=== PATIENT | female | born 1965 | race Caucasian/White ===

== ENCOUNTER 2016-08-10 16:57 | Emergency (ER) | payer OTHER ==
[2016-08-10 17:06] VITALS: BP 155/97
--- NOTE | 2016-08-10 17:23 | UC ---
Throat Pain/Nasal Demian HPI - HPI Summary HPI Summary: Patient has had increased sinus pain and pressure over the last few days, dry cough is keeping her up at night and she is now SOB on exertion. - History of Current Complaint Chief Complaint: UCGeneralIllness Stated Complaint: SINUS Time Seen by Provider: 08/10/16 17:06 Hx Obtained From: Patient Hx Last Menstrual Period: 11/24/12 ?: No Onset/Duration: Sudden Onset, Lasting Days Severity: Moderate Cough: Nonproductive Associated Signs & Symptoms: Positive: Dysphagia, Wheezing, Sinus Discomfort, Nasal Discharge - Allergies/Home Medications Allergies/Adverse Reactions: Allergies Allergy/AdvReac Type Severity Reaction Status Date / Time No Known Allergies Allergy Verified 08/10/16 17:01 Home Medications: Home Medications Ibuprofen TAB* [Motrin TAB* 800 MG] 800 mg PO Q8H PRN 08/10/16 [History Confirmed 08/10/16] Loratadine [Claritin 10 MG CAP] 10 mg PO DAILY 08/10/16 [History Confirmed 08/10] PMH/Surg Hx/FS Hx/Imm Hx Previously Healthy: Yes Respiratory History Of: Reports: Asthma Cancer History Of: Denies: Breast Cancer - Surgical History Surgical History: Yes Surgery Procedure, Year, and Place: , 2004, [facility]. [place], 2006, [facility]. hysterectomy 04/2016 - Family History Known Family History: Positive: Hypertension - Social History Alcohol Use: None Substance Use Type: None Smoking Status (MU): Never Smoked Tobacco Review of Systems Constitutional: Fatigue Skin: Negative Eyes: Negative ENT: Sore Throat, Ear Ache, Nasal Discharge Respiratory: Shortness Of Breath, Cough Cardiovascular: Negative Gastrointestinal: Negative Genitourinary: Negative Motor: Negative Neurovascular: Negative Musculoskeletal: Myalgia Neurological: Headache Psychological: Negative All Other Systems Reviewed And Are Negative: Yes Physical Exam Triage Information Reviewed: Yes Appearance: Well-Nourished, Ill-Appearing, Pain Distress Vital Signs: Initial Vital Signs Temp 97.3 F 08/10/16 17:02 Pulse 79 08/10/16 17:02 Resp 16 08/10/16 17:02 BP 155/97 08/10/16 17:02 Pulse Ox 100 08/10/16 17:02 Vital Signs Reviewed: Yes Eye Exam: Normal Eyes: Positive: Conjunctiva Inflamed ENT: Positive: Pharyngeal erythema, TM bulging Dental Exam: Normal Neck exam: Normal Neck: Positive: Supple, Nontender, No Lymphadenopathy Respiratory Exam: Normal Respiratory: Positive: Lungs clear, Normal breath sounds, Wheezing, Inspiration Cardiovascular Exam: Normal Cardiovascular: Positive: RRR, No Murmur, Pulses Normal Abdominal Exam: Normal Abdomen Description: Positive: Nontender, No Organomegaly, Soft Bowel Sounds: Positive: Present Musculoskeletal Exam: Normal Musculoskeletal: Positive: Strength Intact, ROM Intact, No Edema Neurological Exam: Normal Neurological: Positive: Alert, Muscle Tone Normal Psychological Exam: Normal Skin Exam: Normal Throat Pain/Nasal Course/Dx - Course Course Of Treatment: hx obtained, exam performed, meds reviewed, treated for sinusitis and wheezing - Differential Dx/Diagnosis Differential Diagnosis/HQI/PQRI: Influenza, Laryngitis, Otitis Media, Pharyngitis, Sinusitis Provider Diagnoses: sinusitis. wheezing Discharge - Discharge Plan Condition: Stable Disposition: HOME Patient Education Materials: Wheezing (ED), Sinusitis (ED) Additional Instructions: 1. take the medication as prescribed. hold off on the antibiotic for a day or two to see how the prednisone does for you. 2. increase your fluid intake and get plenty of rest. 3. ibuprofen and tylenol as neede for pain and fever.
== END 2016-08-10 17:31 | disposition home or self-care (01) ==
LOC: UCCORT 16:57
DX: J01.90 Acute sinusitis, unspecified (principal); B96.89 Other specified bacterial agents as the cause of diseases classified elsewhere; R06.2 Wheezing
CPT/HCPCS: 99212; G0463

== ENCOUNTER 2017-11-30 14:50 | Emergency (ER) | payer OTHER ==
[2017-11-30 15:45] VITALS: BP 158/102
--- NOTE | 2017-11-30 15:54 | UC ---
Skin Complaint HPI - HPI Summary HPI Summary: possibly had a tick on her inner right lower leg for about 3 hours yesterday-- patient removed the bug but was talking with friends who felt she should be evaluated has antibiotics - History of Current Complaint Chief Complaint: [facility] Time Seen by Provider: 11/30/17 15:51 Stated Complaint: TICK BITE Hx Obtained From: Patient Hx Last Menstrual Period: 11/24/12 ?: No Onset/Duration: Sudden Onset, Resolved Skin Exposure Onset/Duration: Days Ago - 1 Current Severity: None Pain Intensity: 0 Location: Discrete - right inner lower leg Character: Redness - less than quarter size erythema with small red scab Aggravating Factor(s): Nothing Alleviating Factor(s): Unknown Associated Signs & Symptoms: Positive: Negative Related History: Insect Bite/Sting - Allergy/Home Medications Allergies/Adverse Reactions: Allergies Allergy/AdvReac Type Severity Reaction Status Date / Time No Known Allergies Allergy Verified 11/30/17 15:37 Home Medications: Home Medications Albuterol HFA INHALER* [Ventolin HFA Inhaler*] 2 puff INH Q4H PRN 11/30/17 [ History Confirmed 11/30/17] Ibuprofen TAB* [Advil TAB*] 400 mg PO Q6H PRN 11/30/17 [History Confirmed ] Tamoxifen Citrate 20 mg PO DAILY 11/30/17 [History Confirmed 11/30/17] cloNIDine TAB* [Catapres 0.1 MG TAB*] 0.1 mg PO DAILY 11/30/17 [History Confirmed 11/30/17] Review of Systems Constitutional: Negative Skin: Other - small red area at site of insect bite Eyes: Negative ENT: Negative Respiratory: Negative Cardiovascular: Negative Gastrointestinal: Negative Genitourinary: Negative Motor: Negative Neurovascular: Negative Musculoskeletal: Negative Neurological: Negative Psychological: Negative Is Patient Immunocompromised?: No All Other Systems Reviewed And Are Negative: Yes PMH/Surg Hx/FS Hx/Imm Hx Previously Healthy: No - Fibromyalgia Cardiovascular History: Hypertension GI/ History: Gastroesophageal Reflux Neurological History: Migraine Psychological History: Anxiety Cancer History: Breast Cancer - Surgical History Surgical History: Yes Surgery Procedure, Year, and Place: , 2004, [facility]. [place], 2006, [facility]. hysterectomy 04/2016 - Family History Known Family History: Positive: Hypertension - Social History Occupation: Employed Full-time Lives: With Family Alcohol Use: Weekly Alcohol Amount: 2 Substance Use Type: None Smoking Status (MU): Former Smoker Type: Cigarettes Amount Used/How Often: up 1 pack 15 year Have You Smoked in the Last Year: No When Did the Patient Quit Smoking/Using Tobacco: 2004 Physical Exam Triage Information Reviewed: Yes Appearance: Well-Appearing, No Pain Distress, Obese Vital Signs: Initial Vital Signs Temp 98 F 11/30/17 15:41 Pulse 72 11/30/17 15:41 Resp 17 11/30/17 15:41 BP 158/102 11/30/17 15:41 Pulse Ox 100 11/30/17 15:41 Vital Signs Reviewed: Yes Eye Exam: Normal Eyes: Positive: Conjunctiva Clear ENT Exam: Normal ENT: Positive: Normal ENT inspection, Hearing grossly normal. Negative: Trismus , Muffled voice, Hoarse voice Dental Exam: Normal Neck exam: Normal Neck: Positive: Supple, Nontender Respiratory Exam: Normal Respiratory: Positive: Chest non-tender, No respiratory distress, No accessory muscle use Cardiovascular Exam: Normal Cardiovascular: Positive: RRR, Pulses Normal, Brisk Capillary Refill Musculoskeletal Exam: Normal Musculoskeletal: Positive: Strength Intact, ROM Intact, No Edema Neurological Exam: Normal Neurological: Positive: Alert, Muscle Tone Normal Psychological Exam: Normal Skin Exam: Other Skin: Positive: Other - less than one quarter size erythemic area with small red scab no streak, no raised area on inner lower right leg Course/Dx - Course Course Of Treatment: mild soap and water wash, observe fo s/s of Lyme follow wblood pressure and change in symptoms with pcp - Diagnoses Provider Diagnoses: elevated blood pressure in poor control, insect bite right lower leg Discharge - Sign-Out/Discharge Documenting (check all that apply): Patient Departure All imaging exams completed and their final reports reviewed: No Studies - Discharge Plan Condition: Stable Disposition: HOME Patient Education Materials: Lyme Disease (ED), Tick Bite (ED), Hypertension ( ED) Referrals: Maite Manuel MD [Primary Care Provider] - 2 Weeks - Billing Disposition and Condition Condition: STABLE Disposition: Home
== END 2017-11-30 16:05 | disposition home or self-care (01) ==
LOC: UCCORT 14:50
CPT/HCPCS: 99211; G0463

== ENCOUNTER 2018-08-24 18:47 | Emergency (ER) | payer OTHER ==
--- OUTSIDE RECORDS SUMMARY | 2018-08-24 19:13 | XMS REPORT | Continuity of Care Document ---
:1965 External Reference #:[id number] Author Name Maite Manuel MD Address [address] [place] [address] Care Team Providers Name Role Phone Maite Manuel MD Care Team Information Registry Rn Unavailable Maite Manuel MD Primary Care Physician Unavailable Payers Date Identification Numbers Payment Provider Subscriber Policy Number: [id number] [facility] Sherice Trammell PayID: [id number] [address] [place] [phone] Expires: 2018 Policy Number: [id number] [employer] Sherice Trammell PayID: [id number] [address] [place] [phone] Expires: 2016 Policy Number: [id number] [facility] Sherice Trammell PayID: [id number] [address] [place] [address] Problems Active Problems Provider Date Obesity Carmine Heath MD Onset: 05/22/2015 Cannabis abuse, uncomplicated Carmine Heath MD Onset: 05/22/2015 Neck pain Kori Davison MD Onset: 06/14/2015 Fibromyalgia Maite Manuel MD Onset: 02/28/2017 Low back pain Onset: 03/02/2013 Generalized anxiety disorder Onset: 12/16/2012 Depressive disorder Onset: 02/10/2012 Migraine Onset: 02/12/2010 Essential hypertension Maite Manuel MD Onset: 06/13/2017 Mixed urinary incontinence Maite Manuel MD Onset: 06/13/2017 Benign tumor of breast Coco Shaver DO Onset: 04/14/2018 Family history of breast cancer Coco Shaver DO Onset: 04/14/2018 Malaise and fatigue Coco Shaver DO Onset: 04/14/2018 Iron deficiency Coco Shaver DO Onset: 04/28/2018 Vitamin B deficiency Coco Shaver DO Onset: 04/28/2018 Vitamin D deficiency Coco Shaver DO Onset: 04/28/2018 Resolved Problems Enthesopathy of hip region Girish Ng MD Onset: 07/30/2011 Resolved: 04/11/2017 Diabetes mellitus Onset: 02/10/2012 Resolved: 04/11/2017 Vitamin D deficiency Onset: 02/10/2012 Resolved: 04/11/2017 Cyst of vulva Onset: 06/13/2011 Resolved: 04/11/2017 Pain in elbow Onset: 2011 Resolved: 04/11/2017 Laceration - injury Onset: 04/11/2011 Resolved: 04/11/2017 Concussion Onset: 04/11/2011 Resolved: 04/11/2017 Cervical lymphadenopathy Onset: 01/11/2010 Resolved: 04/11/2017 Myalgia Kori Davison MD Onset: 06/14/2015 Resolved: 04/11/2017 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 Resolved: 04/11/2017 Family History Date Family Member(s) Observation Comments Father Hypertension Onset: (02/28/2017) Father Hypertension Mother Hypertension SVT Mother Obesity Mother melanoma/carcinoma Onset: (02/28/2017) Mother Alive obseity, blood pressure, skin cancer Social History Type Date Description Comments Sex Unknown Marital Status Patient is Lives With Roommate Diet Patient follows no dietary restrictions Occupation Executive administrative ADL's/IADL's Independent with all ADL's Drive Patient drives Tobacco Use Start: Unknown End: Quit 2004 Unknown ETOH Use Currently consumes alcohol weekend Recreational Drug Use Denies Drug Use Tobacco Use Start: Unknown End: Patient is a former smoker Unknown Smoking Status Reviewed: 08/18/18 Patient is a former smoker Enjoy Exercising Does not enjoy exercising Tattoo/Piercing Tattoo Tattoo/Piercing Pierced ears Tattoo/Piercing Pierced Nasal Area Currently Active Patient is currently sexually active Contraceptive Methods Essure # Partners in a Lifetime Has been with current partner 15 YRS for over 10 years STD's No STD History Allergies, Adverse Reactions, Alerts Active Allergies Reaction Severity Comments Date Environmental 01/18/2010 Seasonal 01/18/2010 Clams GI 07/30/2011 Benazepril Cough, Wheezing 05/04/2018 Losartan Hives Severe hives 2018 Medications Active Medications SIG Qnty Indications Ordering Date Provider Effexor XR 1 tab daily 30caps Kaleb, Maite, 08/18/2018 37.5mg Caps ER 24HR Hydrochlorothiazide 1 tab by mouth 90tabs Kaleb, Maite, 05/19/2018 12.5mg every day MD Tablets Amlodipine Besylate 1 by mouth 90tabs Kaleb, Maite, 2018 5mg Tablets every day MD Omeprazole 1 by mouth 90caps Kaleb, Maite, 04/28/[address] every day Buspirone HCL 1 tab by mouth 270tabs Kaleb, Maite, 07/14/2017 15mg Tablets three times a MD day Blood Pressure Kit take your blood 1units I10 Gagen, 07/14/2017 Kit pressure once Anika, to twice daily MS, [employer], CNM as directed Clonidine HCL 1 tab by mouth 90tabs Kaleb, Maite, 03/26/2017 0.1mg Tablets at bedtime MD Dailey take one pill 60tabs Viral Manuela, 01/23/2015 1mg Tablets twice a day as MD needed for anxiety/panic attacks reference #: [id number] Albuterol Sulfate albuterol 75ml Kaleb, Maite, 12/12/2009 (2.5mg/3ML) sulfate (2.5 MD 0.083% Nebulizer mg/3ml) 0.083% nebu Ibuprofen 200 2 tabs by mouth Unknown 200mg Tablets three times a day as needed Tamoxifen Citrate 1 daily 90tabs Boufal, 20mg Tablets Coco, DO Flonase 1 spray each Unknown 50mcg/Act Suspension nare daily History Medications Naproxen 1 by mouth twice 30tabs M54.5 Kaleb, Maite, 06/26/2018 - 500mg Tablets a day with food MD 07/11/2018 Losartan Potassium 1 by mouth every 30tabs Gagen, 05/04/2018 - 50mg day Anika, 2018 Tablets MS, [employer], CNM Ergocalciferol 1 cap by mouth 6caps Boufal, 04/28/2018 - [id number] every week Coco, DO 06/26/2018 Capsules Benazepril HCL 1 tab by mouth 90tabs Maite Manuel, 04/28/2018 - 20mg Tablets every day MD 05/04/2018 Doxycycline Monohydrate 2 cap by mouth 2caps KalebViral prasada, 12/01/2017 - once MD 04/28/2018 100mg Capsules Mucinex 1 tab by mouth 30tabs Maite Manuel, 04/11/2017 - 600mg Tablets ER twice daily for 04/28/2018 12HR cough congestion Amoxicillin/Clavulanate 1 tab by mouth 14tabs Maite Manuel, 04/11/2017 - Potassium q12hrs for 7 days 06/13/2017 875-125mg Tablets Buspirone HCL 1 tab by mouth 60tabs Maite Manuel, 02/28/2017 - 10mg Tablets twice a day 07/14/2017 Cyclobenzaprine HCL 1 tab by mouth 180tabs Maite Manuel, 02/28/2017 - 10mg twice daily as 04/21/2018 Tablets needed pain Clonidine HCL 1 by mouth every 90tabs Kumar, 04/12/2015 - 0.1mg Tablets day at bedtime Carmine Novoa MD 02/28/2017 Prozac take 1 pill each 90caps Kumar, 04/12/2015 - 10mg Capsules day Carmine Novoa MD 02/28/2017 Proair HFA 1 puff q6hrs as 8.500gm Maite Manuel, 02/16/2015 - 108(90Base) needed for 04/21/2018 mcg/Act Aerosol shortness of breath Cymbalta take one pill 60caps Kumar, 01/23/2015 - 20mg Caps DR Part once daily for 7 Carmine Novoa MD 04/12/2015 days then one pill twice a day there after Paxil take one pill 30tabs Kumar, 11/22/2014 - 10mg Tablets each night before Carmine Novoa MD 01/22/2015 bed Klonopin Take one tablet 60tabs Kumar, 11/22/2014 - 0.5mg Tablets two times daily Carmine Novoa MD 01/23/2015 Oxycodone-Acetaminophen Oxycodone-Acetami 30tabs Unknown 12/23/2013 - nophen 5-325 MG 06/13/2015 5-325mg Tablets Tabs Ondansetron HCL Zofran 4 MG Tabs Unknown 12/15/2013 - 4mg Tablets 06/13/2015 Lorazepam White, - 0.5mg Tablets MD Jess 02/28/2017 Ibuprofen 1 tablet by mouth Unknown - 800mg Tablets three times a day 04/28/2018 with meals. Botox Unknown - Solution Rec 02/28/2017 Cyclobenzaprine HCL 1/2-1 po tid prn 30tabs Unknown - 10mg spasms 11/21/2014 Tablets Sumatriptan Succinate po prn migraines Unknown - 100mg 11/21/2014 Tablets Zofran 1tab po q4-6 hrs 30tabs Unknown - 4mg Tablets prn for nausea 11/21/2014 Zyrtec Allergy Unknown - 10mg Unknown Capsules Aleve prn Unknown - 220mg Capsules Unknown Ventolin HFA prn Unknown - 108(90Base) 11/21/2014 mcg/ac Aerosol Viridiana 1 po qd 30tabs Unknown - 60mg Tablets Unknown Mobic 1 po bid 60tabs Unknown - 7.5mg Tablets Unknown Flonase 1 intranasal qd Unknown - 50mcg/Act Unknown Suspension Ibuprofen prn 180tabs Unknown - 600mg Tablets Unknown Omeprazole 1 by mouth every 90caps Gagen, - 40mg Capsules DR angelo Donaldson, 04/28/2018 MS, [employer], CNM Immunizations CPT Code Status Date Vaccine Lot # [id number] Given 12/13/2017 Influenza Virus Vaccine, Quadrivalent, 36 Mos+, .5ML Vital Signs Date Vital Result Comment 08/18/2018 11:01am BP Systolic Sitting Left Arm 134 mmHg lg cuff BP Diastolic Sitting Left Arm 86 mmHg lg cuff Body Temperature 98.2 F Heart Rate 70 /min Respiratory Rate 18 /min Height 63 inches 5'3" Weight 243.00 lb BMI (Body Mass Index) 43.0 kg/m2 BSA (Body Surface Area) 2.10 m2 [place] body weight in kilograms 52 kg O2 % BldC Oximetry 99 % Ra 07/22/2018 9:34am BP Systolic 128 mmHg BP Diastolic 84 mmHg Body Temperature 98.1 F Heart Rate 67 /min Respiratory Rate 16 /min Weight 245.00 lb O2 % BldC Oximetry 100 % Pain Level 0 06/26/2018 8:35am BP Systolic Sitting Left Arm 126 mmHg BP Diastolic Sitting Left Arm 82 mmHg Body Temperature 98.0 F Heart Rate 85 /min Respiratory Rate 24 /min Height 63 inches 5'3" Weight 242.00 lb BMI (Body Mass Index) 42.9 kg/m2 BSA (Body Surface Area) 2.10 m2 [place] body weight in kilograms 52 kg O2 % BldC Oximetry 96 % 06/08/2018 9:04am BP Systolic 126 mmHg left, 124/82 right BP Diastolic 86 mmHg left, 124/82 right BP Systolic Sitting Right Arm 124 mmHg own cuff: 123/93 BP Diastolic Sitting Right Arm 90 mmHg own cuff: 123/93 BP Systolic Sitting Left Arm 122 mmHg own cuff: 137/102 BP Diastolic Sitting Left Arm 82 mmHg own cuff: 137/102 Body Temperature 9.8 F Heart Rate 76 /min own cuff: 74; Respiratory Rate 18 /min Height 63 inches 5'3" Weight 246.00 lb BMI (Body Mass Index) 43.6 kg/m2 BSA (Body Surface Area) 2.11 m2 [place] body weight in kilograms 52 kg O2 % BldC Oximetry 98 % 05/19/2018 1:03pm BP Systolic Sitting Right Arm 142 mmHg BP Diastolic Sitting Right Arm 92 mmHg Body Temperature 97.7 F Heart Rate 86 /min Respiratory Rate 18 /min Height 63 inches 5'3" Weight 247.00 lb BMI (Body Mass Index) 43.7 kg/m2 BSA (Body Surface Area) 2.12 m2 [place] body weight in kilograms 52 kg O2 % BldC Oximetry 99 % Ra 04/28/2018 2:42pm BP Systolic 146 mmHg repeat left/manual BP Diastolic 88 mmHg repeat left/manual BP Systolic Sitting Left Arm 162 mmHg Her cuff 166/105 BP Diastolic Sitting Left Arm 108 mmHg Her cuff 166/105 Heart Rate 79 /min Height 63 inches 5'3" Weight 245.00 lb BMI (Body Mass Index) 43.4 kg/m2 BSA (Body Surface Area) 2.11 m2 [place] body weight in kilograms 52 kg O2 % BldC Oximetry 98 % 04/28/2018 8:37am BP Systolic 146 mmHg BP Diastolic 92 mmHg Body Temperature 96.7 F Heart Rate 79 /min Respiratory Rate 16 /min Weight 245.50 lb O2 % BldC Oximetry 97 % Pain Level 0 04/14/2018 1:34pm Weight 245.00 lb 06/13/2017 3:11pm BP Systolic Sitting Left Arm 146 mmHg repeat manual 136/ 94 BP Diastolic Sitting Left Arm 97 mmHg repeat manual 136/94 Heart Rate 75 /min Respiratory Rate 18 /min Height 63 inches 5'3" Weight 238.00 lb BMI (Body Mass Index) 42.2 kg/m2 BSA (Body Surface Area) 2.08 m2 [place] body weight in kilograms 52 kg 04/11/2017 11:49am BP Systolic Sitting Left Arm 153 mmHg BP Diastolic Sitting Left Arm 105 mmHg Body Temperature 98.4 F Heart Rate 72 /min Respiratory Rate 18 /min Height 63 inches 5'3" Weight 245.00 lb BMI (Body Mass Index) 43.4 kg/m2 BSA (Body Surface Area) 2.11 m2 [place] body weight in kilograms 52 kg O2 % BldC Oximetry 99 % 03/26/2017 11:02am BP Systolic Sitting Left Arm 146 mmHg BP Diastolic Sitting Left Arm 90 mmHg Heart Rate 64 /min Height 63 inches 5'3" Weight 242.00 lb BMI (Body Mass Index) 42.9 kg/m2 BSA (Body Surface Area) 2.10 m2 [place] body weight in kilograms 52 kg 03/11/2017 9:01am BP Systolic 131 mmHg BP Diastolic 102 mmHg BP Systolic Sitting Right Arm 131 mmHg BP Diastolic Sitting Right Arm 102 mmHg BP Systolic Sitting Left Arm 130 mmHg BP Diastolic Sitting Left Arm 93 mmHg Heart Rate 72 /min Respiratory Rate 18 /min O2 % BldC Oximetry 98 % 02/28/2017 8:36am BP Systolic 155 mmHg recheck 155/ 96 BP Diastolic 100 mmHg recheck 155/ 96 Heart Rate 90 /min Respiratory Rate 14 /min Height 63.15 inches 5'3.15" Weight 239.50 lb BMI (Body Mass Index) 42.2 kg/m2 BSA (Body Surface Area) 2.09 m2 [place] body weight in kilograms 53 kg O2 % BldC Oximetry 99 % 06/14/2015 8:40am BP Systolic 132 mmHg BP Diastolic 82 mmHg Body Temperature 98.6 F Heart Rate 70 /min Respiratory Rate 18 /min Height 63.15 inches 5'3.15" Weight 227.00 lb BMI (Body Mass Index) 40.0 kg/m2 BSA (Body Surface Area) 2.04 m2 05/22/2015 2:46pm BP Systolic Sitting Left Arm 118 mmHg BP Diastolic Sitting Left Arm 74 mmHg Heart Rate 72 /min Respiratory Rate 19 /min Height 63.15 inches 5'3.15" Weight 227.00 lb BMI (Body Mass Index) 40.0 kg/m2 BSA (Body Surface Area) 2.04 m2 04/12/2015 3:31pm BP Systolic Sitting Left Arm 138 mmHg BP Diastolic Sitting Left Arm 98 mmHg Heart Rate 86 /min Height 63.15 inches 5'3.15" Weight 226.00 lb BMI (Body Mass Index) 39.8 kg/m2 BSA (Body Surface Area) 2.04 m2 01/23/2015 2:05pm BP Systolic 116 mmHg BP Diastolic 78 mmHg Heart Rate 81 /min Height 63.15 inches 5'3.15" Weight 226.00 lb BMI (Body Mass Index) 39.8 kg/m2 BSA (Body Surface Area) 2.04 m2 O2 % BldC Oximetry 99 % Ra 11/22/2014 1:15pm BP Systolic 122 mmHg BP Diastolic 82 mmHg Body Temperature 98.2 F Heart Rate 82 /min Respiratory Rate 18 /min Height 63.15 inches 5'3.15" Weight 226.00 lb BMI (Body Mass Index) 39.8 kg/m2 BSA (Body Surface Area) 2.04 m2 O2 % BldC Oximetry 99 % Ra 07/30/2011 11:00am BP Systolic Sitting Right Arm 118 mmHg BP Diastolic Sitting Right Arm 68 mmHg Heart Rate 60 /min Respiratory Rate 14 /min Height 62 inches 5'2" Weight 219.00 lb BMI (Body Mass Index) 40.1 kg/m2 Results Test Date Facility Test Result H/L Range Note CBC 07/22/2018 [facility] White Blood 8.1 K/uL N 3.1-10.7 1 W/Automated [address] [place] [place] [address] [phone] Red Blood Count 4.46 M/uL N 3.90-5.40 Hemoglobin 13.2 gm/dL N 11.6-15.8 Hematocrit 40.0 % N 36.0-46.1 Mean Cell Volume 89.7 fl N 80.9-99.0 Mean Corpuscular HGB 29.6 pg N 25.9-32.7 Mean Corpuscular HGB Conc 33.0 g/dL N 30.8-34.3 Platelet Count 278 K/uL N 155-360 Red Cell Distri Width SD 43.6 fl N 36-47 Red Cell Distri Width %CV 13.2 % N 11.7-14.4 Mean Platelet Volume 9.7 fl N 8.9-12.4 Neut% 56.3 % N 40.4-72.8 Lymph % 34.9 % N 20.0-42.0 [facility] % 4.9 % N 4.3-13.2 Eo% 2.2 % N 0.0-6.6 Bas% 1.0 % N 0.0-1.1 Immature Grans 0.7 % N 0.0-5.0 NRBC % 0.0 /100WBC < 10/ 100 WBC Neut# 4.57 K/uL N 1.8-7.0 Lymph # 2.84 K/uL N 1.0-4.0 [facility] # 0.40 K/uL N 0.3-0.9 Eos # 0.18 K/uL N 0.0-0.5 Baso # 0.08 K/uL N 0.0-0.1 Immature Grans Absolute 0.06 K/uL NRBC # 0.00 K/uL Comprehensive Metabolic 07/22/2018 [facility] Glucose 88 mg/dL N 74-[address] [place] [address] [phone] BUN 18 mg/dL N 7-18 Creatinine 0.8 mg/dL N 0.6-1.3 Glom Filtration Rate, Estimate >60 mL/min >60 If >60 mL/min >60 2 BUN/Creat 22.5 ratio Sodium 140 mmol/L N 136-145 Potassium 3.3 mmol/L Low 3.5-5.1 Chloride 105 mmol/L N 98-107 Carbon Dioxide 30 mmol/L N 21-32 Anion Gap 5 mEq/L Low 8-16 Calcium 9.0 mg/dL N 8.5-10.1 Total Protein 7.3 g/dL N 6.4-8.2 Albumin 3.8 g/dL N 3.4-5.0 Globulin 3.5 g/dL N 1.9-4.3 Alb/Glob 1.1 ratio Bilirubin,Total 0.4 mg/dL N 0.2-1.0 Sgot/Ast 25 U/L N 15-37 SGPT/Alt 38 U/L N 12-78 Alkaline Phosphatase 65 U/L N 45-117 Iron-Tibc-%Sat 07/22/2018 [facility] Serum Iron 68 g/dL N 50-170 [address] [place], [place] [id number] [phone] Total Iron Binding Capacity 361 g/dL N 250-450 Transferrin %Saturation 19 % N 12-57 Laboratory test 07/22/2018 [facility] Ferritin 94 ng/mL N 8-252 finding [address] [place], [place] [id number] [phone] Vitamin B12 And 07/22/2018 [facility] Vitamin B12 490 pg/mL N 193-986 Folate [address] [place], [place] 38[address] [phone] Folic Acid 14.0 ng/mL N 3.1-17.5 Laboratory test 07/22/2018 [facility] Vitamin 44.3 30.0-100.0 3 finding 134 [facility] D,25-Hydroxy ng/mL [place], [place] [id number] [phone] Thyroid Stim Hormone 2.44 uIU/mL N 0.30-4.20 Basic Metabolic Panel 06/06/2018 [facility] Glucose 139 mg/dL High 74-106 4 [address] [place], [place] [id number] [phone] BUN 16 mg/dL N 7-18 Creatinine 0.8 mg/dL N 0.6-1.3 Glom Filtration Rate, Estimate >60 mL/min >60 If >60 mL/min >60 5 BUN/Creat 20.0 ratio Sodium 141 mmol/L N 136-145 Potassium 3.4 mmol/L Low 3.5-5.1 Chloride 107 mmol/L N 98-107 Carbon Dioxide 28 mmol/L N 21-32 Anion Gap 6 mEq/L Low 8-16 Calcium 8.5 mg/dL N 8.5-10.1 CBC W/Automated Diff 04/14/2018 [facility] White Blood 9.5 K/uL N 3.1-10.[address] [place] [address] [phone] Red Blood Count 4.67 M/uL N 3.90-5.40 Hemoglobin 13.6 gm/dL N 11.6-15.8 Hematocrit 40.3 % N 36.0-46.1 Mean Cell Volume 86.3 fl N 80.9-99.0 Mean Corpuscular HGB 29.1 pg N 25.9-32.7 Mean Corpuscular HGB Conc 33.7 g/dL N 30.8-34.3 Platelet Count 287 K/uL N 155-360 Red Cell Distri Width SD 43.0 fl N 36-47 Red Cell Distri Width %CV 13.9 % N 11.7-14.4 Mean Platelet Volume 9.6 fL N 8.9-12.4 Neut% 54.7 % N 40.4-72.8 Lymph % 38.2 % N 20.0-42.0 [facility] % 5.2 % N 4.3-13.2 Eo% 1.5 % N 0.0-6.6 Bas% 0.4 % N 0.0-1.1 Neut# 5.19 K/uL N 1.8-7.0 Lymph # 3.62 K/uL N 1.0-4.0 [facility] # 0.49 K/uL N 0.3-0.9 Eos # 0.14 K/uL N 0.0-0.5 Baso # 0.04 K/uL N 0.0-0.1 Comprehensive Metabolic 04/14/2018 [facility] Glucose 63 mg/dL Low 74-[address] [place] [address] [phone] BUN 16 mg/dL N 7-18 Creatinine 0.7 mg/dL N 0.6-1.3 Glom Filtration Rate, Estimate >60 mL/min >60 If >60 mL/min >60 7 BUN/Creat 22.8 ratio Sodium 140 mmol/L N 136-145 Potassium 3.2 mmol/L Low 3.5-5.1 Chloride 106 mmol/L N 98-107 Carbon Dioxide 27 mmol/L N 21-32 Anion Gap 7 mEq/L Low 8-16 Calcium 8.5 mg/dL N 8.5-10.1 Total Protein 7.6 g/dL N 6.4-8.2 Albumin 3.8 g/dL N 3.4-5.0 Globulin 3.8 g/dL N 1.9-4.3 Alb/Glob 1.0 ratio Bilirubin,Total 0.6 mg/dL N 0.2-1.0 Sgot/Ast 22 U/L N 15-37 SGPT/Alt 32 U/L N 12-78 Alkaline Phosphatase 64 U/L N 45-117 Iron-Tibc-%Sat 04/14/2018 [facility] Serum Iron 35 g/dL Low 50-170 [address] [place], [place] [id number] [phone] Total Iron Binding Capacity 375 g/dL N 250-450 Transferrin %Saturation 9 % Low 12-57 Laboratory test 04/14/2018 [facility] Ferritin 77 ng/mL N 8-252 finding [address] [place], [place] [address] [phone] Vitamin B12 And 04/14/2018 [facility] Vitamin B12 430 pg/mL N 193-986 Folate [address] [place], [place] [address] [phone] Folic Acid > 20.0 ng/mL High 3.1-17.5 Laboratory test 04/14/2018 [facility] Vitamin 22.0 Low 30.0-100.0 8 finding [address] D,25-Hydroxy ng/mL [place], [place] [address]12 [phone] Reticulocyte 04/14/2018 [facility] Retic % 2.1 % High 0.5-1.8 Count,Automated [address] [place], [place] [id number] [phone] Laboratory test 04/14/2018 [facility] LDH 172 U/L N 84-246 finding [address] [place] [address] [phone] Immunoglobulins 04/14/2018 [facility] Immunoglobulin [phone] A/G/M, QN, Ser [address] G,Quant,Serum mg/[place] [address] [phone] Immunoglobulin A 109 mg/dL 87-352 Immunoglobulin M 86 mg/dL 26-217 9 Comprehensive Metabolic 04/11/2018 [facility] Glucose 94 mg/dL N 74-106 10 Panel [address] [place] [address] [phone] BUN 12 mg/dL N 7-18 Creatinine 0.8 mg/dL N 0.6-1.3 Glom Filtration Rate, Estimate >60 mL/min >60 If >60 mL/min >60 11 BUN/Creat 15.0 ratio Sodium 142 mmol/L N 136-145 Potassium 3.9 mmol/L N 3.5-5.1 Chloride 109 mmol/L High 98-107 Carbon Dioxide 28 mmol/L N 21-32 Anion Gap 5 mEq/L Low 8-16 Calcium 8.6 mg/dL N 8.5-10.1 Total Protein 6.9 g/dL N 6.4-8.2 Albumin 3.4 g/dL N 3.4-5.0 Globulin 3.5 g/dL N 1.9-4.3 Alb/Glob 1.0 ratio Bilirubin,Total 0.7 mg/dL N 0.2-1.0 Sgot/Ast 20 U/L N 15-37 SGPT/Alt 30 U/L N 12-78 Alkaline Phosphatase 62 U/L N 45-117 LDL Cholesterol Profile 04/11/2018 [facility] Cholesterol 151 mg/dL <200 12 [address] [place] [address] [phone] Triglycerides 163 mg/dL High <150 13 HDL Cholesterol 28 mg/dL Low >40 14 LDL-Cholesterol 90 mg/dL < 100 15 CBS W/Automated Diff 04/11/2018 [facility] White Blood 7.9 K/uL N 3.1-10.7 [address] [place] [address] [phone] Red Blood Count 4.40 M/uL N 3.90-5.40 Hemoglobin 13.0 gm/dL N 11.6-15.8 Hematocrit 38.8 % N 36.0-46.1 Mean Cell Volume 88.2 fl N 80.9-99.0 Mean Corpuscular HGB 29.5 pg N 25.9-32.7 Mean Corpuscular HGB Conc 33.5 g/dL N 30.8-34.3 Platelet Count 253 K/uL N 155-360 Red Cell Distri Width SD 43.7 fl N 36-47 Red Cell Distri Width %CV 13.9 % N 11.7-14.4 Mean Platelet Volume 9.1 fL N 8.9-12.4 Neut% 62.5 % N 40.4-72.8 Lymph % 31.1 % N 20.0-42.0 [facility] % 3.9 % Low 4.3-13.2 Eo% 2.0 % N 0.0-6.6 Bas% 0.5 % N 0.0-1.1 Neut# 4.95 K/uL N 1.8-7.0 Lymph # 2.47 K/uL N 1.0-4.0 [facility] # 0.31 K/uL N 0.3-0.9 Eos # 0.16 K/uL N 0.0-0.5 Baso # 0.04 K/uL N 0.0-0.1 Glycohemoglobin A1c 04/11/2018 [facility] Glycohemoglobin 5.2 % N 4.2-6.[address] (A1c) [place] [address] [phone] eAG 103 mg/dL Influenza A/B 04/11/2017 [facility] Influenza A Negative (Negative) [address] [place] [address] [phone] Influenza B Antigen Negative (Negative) 18 CBS W/Automated 03/15/[address] [facility] [address] White Blood 9.5 K/uL N 3.1- 10.7 [address] [place] [address] [phone] Red Blood Count 4.80 M/uL N 3.90-5.40 Hemoglobin 14.1 gm/dL N 11.6-15.8 Hematocrit 41.9 % N 36.0-46.1 Mean Cell Volume 87.3 fl N 80.9-99.0 Mean Corpuscular HGB 29.4 pg N 25.9-32.7 Mean Corpuscular HGB Conc 33.7 g/dL N 30.8-34.3 Platelet Count 307 K/uL N 155-360 Red Cell Distri Width SD 45.9 fl N 3-47 Red Cell Distri Width %CV 14.6 % High 11.7-14.4 Mean Platelet Volume 9.5 fL N 8.9-12.4 Neut% 57.7 % N 40.4-72.8 Lymph % 35.3 % N 20.0-42.0 [facility] % 4.5 % N 4.3-13.2 Eo% 2.2 % N 0.0-6.6 Bas% 0.3 % N 0.0-1.1 Neut# 5.49 K/uL N 1.8-7.0 Lymph # 3.36 K/uL N 1.0-4.0 [facility] # 0.43 K/uL N 0.3-0.9 Eos # 0.21 K/uL N 0.0-0.5 Baso # 0.03 K/uL N 0.0-0.1 Laboratory test 03/15/[address] [facility] [address] Thyroid Stim 2.64 uIU/mL N 0.30-4.[address] [place] [address] [place] [address] [phone] Free T4 0.98 ng/dL N 0.76-1.46 Comprehensive Metabolic 03/15/[address] [facility] [address] Glucose 95 mg/dL N 74 -[address] [place] [address] [phone] BUN 13 mg/dL N 7-18 Creatinine 0.8 mg/dL N 0.6-1.3 Glom Filtration Rate, Estimate >60 mL/min >60 If >60 mL/min >60 20 BUN/Creat 16.2 ratio Sodium 140 mmol/L N 136-145 Potassium 4.2 mmol/L N 3.5-5.1 Chloride 107 mmol/L N 98-107 Carbon Dioxide 27 mmol/L N 21-32 Anion Gap 6 mEq/L Low 8-16 Calcium 8.5 mg/dL N 8.5-10.1 Total Protein 6.8 g/dL N 6.4-8.2 Albumin 3.4 g/dL N 3.4-5.0 Globulin 3.4 g/dL N 1.9-4.3 Alb/Glob 1.0 ratio Bilirubin,Total 0.7 mg/dL N 0.2-1.0 Sgot/Ast 11 U/L Low 15-37 21 SGPT/Alt 23 U/L N 12-78 Alkaline Phosphatase 64 U/L N 45-117 Glycohemoglobin A1c 03/15/[address] [facility] [address] Glycohemoglobin 5.5 % N 4.2-6.3 22 [address] [facility] (A1c) [place], [place] [id number] [phone] eAG 111 mg/dL LDL Cholesterol Profile 03/15/[address] [facility] [address] Cholesterol 159 mg/dL <201 57 [address] [place] [address] [phone] Triglycerides 218 mg/dL High <150 24 HDL Cholesterol 31 mg/dL Low >40 25 LDL-Cholesterol 84 mg/dL < 100 26 CBC 01/25/2015 [facility] White Blood Count 10.0 K/uL 3.1-10.7 [address] [place] [address] [phone] Red Blood Count 4.47 M/uL 3.90-5.40 Hemoglobin 13.9 gm/dL 11.6-15.8 Hematocrit 41.0 % 36.0-46.1 Mean Cell Volume 91.7 fl 80.9-99.0 Mean Corpuscular HGB 31.1 pg 25.9-32.7 Mean Corpuscular HGB Conc 33.9 g/dL 30.8-34.3 Platelet Count 327 K/uL 155-360 Red Cell Distri Width %CV 13.5 % 11.7-14.4 Mean Platelet Volume 10.0 fL 8.9-12.4 Laboratory test 01/25/2015 [facility] Vitamin B12 308 pg/mL 193-986 27 finding [address] [place] [address] [phone] Thyroid Stim Hormone 1.90 uIU/mL 0.36-3.74 1 D24.2 E61.1 E53.9 2 Note: Persistent reduction for 3 months or more in an eGFR <60 mL/min/1.73 m2 defines CKD. Patients with eGFR values >/=60 mL/min/1.73 m2 may also have CKD if evidence of persistent proteinuria is present. The original MDRD equation for estimated GFR is not valid for patients less than 18 years of age. Additional information may be found at www.[email or web address]. 3 Vitamin D deficiency has been defined by the [place] [employer] and an [employer] Society practice guideline as a level of serum 25-OH vitamin D less than 20 ng/mL (1,2). The Endocrine Society went on to further define vitamin D insufficiency as a level between 21 and 29 ng/mL (2). 1. IOM ([place] of [employer]). 2010. Dietary reference intakes for calcium and D. [place]: The National Academies Press. 2. Jose Roberto MF, Kirstin POWELL, Janeth ENRIQUEZ, et al. Evaluation, treatment, and prevention of vitamin D deficiency: an Endocrine Society clinical practice guideline. JCEM. 2010; 96(7):1911-30. Performed at: RN - [facility] [address] [id number] Java Web Services Developer: Jasmyn Hutchinson MD, Phone: [phone] I40 Q97.6 5 Note: Persistent reduction for 3 months or more in an eGFR <60 mL/min/1.73 m2 defines CKD. Patients with eGFR values >/=60 mL/min/1.73 m2 may also have CKD if evidence of persistent proteinuria is present. The original MDRD equation for estimated GFR is not valid for patients less than 18 years of age. Additional information may be found at www.kdoqi.org. 6 E55.9 E6.09 F41.1 7 Note: Persistent reduction for 3 months or more in an eGFR <60 mL/min/1.73 m2 defines CKD. Patients with eGFR values >/=60 mL/min/1.73 m2 may also have CKD if evidence of persistent proteinuria is present. The original MDRD equation for estimated GFR is not valid for patients less than 18 years of age. Additional information may be found at www.kdoqi.org. 8 Vitamin D deficiency has been defined by the [place] of [employer] and an Endocrine Society practice guideline as a level of serum 25-OH vitamin D less than 20 ng/mL (1,2). The Endocrine Society went on to further define vitamin D insufficiency as a level between 21 and 29 ng/mL (2). 1. IOM ([place] of [employer]). 2010. Dietary reference intakes for calcium and D. [place]: The National Academies Press. 2. Jose Roberto MF, Kirstin POWELL, Janeth ENRIQUEZ, et al. Evaluation, treatment, and prevention of vitamin D deficiency: an Endocrine Society clinical practice guideline. JCEM. 2010; 96(7):1911-30. Performed at: RN - [facility] [address] [id number] Java [employer] Developer: Jasmyn Hutchinson MD, Phone: [phone] Performed at: RN - [facility] [address] [id number] [employer] Developer: Jasmyn Hutchinson MD, Phone: [phone] E66.09,F41.1,I10 11 Note: Persistent reduction for 3 months or more in an eGFR <60 mL/min/1.73 m2 defines CKD. Patients with eGFR values >/=60 mL/min/1.73 m2 may also have CKD if evidence of persistent proteinuria is present. The original MDRD equation for estimated GFR is not valid for patients less than 18 years of age. Additional information may be found at www.kdoqi.org. 12 Reference Guidelines*: Desirable: ........... < 200 mg/dL Borderline High: ..... 200-239 mg/dL High: ................ >=240 mg/dL * The National Cholesterol Education Program (NCEP) 13 Reference Guidelines*: Normal: ............. < 150 mg/dL Borderline High: .... 150-199 mg/dL High: ............... 200-499 mg/dL Very High: .......... > 500 mg/dL * Source: National Cholesterol Education Program (NCEP) 14 Reference Guidelines*: Low HDL: ..... < 40 mg/dL Normal: ..... 40-60 mg/dL Desirable: ... > 60 mg/dL *The National Cholesterol Education Program(NCEP) 15 Reference Guidelines*: Optimal:........... <100 mg/dL Near Optimal....... 100-129 mg/dL Borderline High.... 130-159 mg/dL High............... 160-189 mg/dL Very High.......... >=190 mg/dL * Source: National Cholesterol Education Program (NCEP) 16 Elevated levels of HbA1c suggest the need for more aggressive treatment of glycemia. The [place] [employer] recommends that a primary goal of therapy should be a HbA1c of <7% and that physicians should re-evaluate the treatment regimen in patients with HbA1c values consistently >8%. 17 J06.9 18 Please Note: A POSITIVE result for influenza A and/or B antigen does not rule out a co-infection with other pathogens or identify any specific influenza A virus subtype. A NEGATIVE result for influenza A and/or B antigen does not preclude influenza virus infection and should not be the sole basis for treatment or other management decisions, since the antigen present in the specimen may be below the detection limit of the test. A NEGATIVE result is PRESUMPTIVE and it is recommended these results be confirmed by virus culture or an FDA-cleared influenza A and B molecular assay. Method: [employer] Chromatographic immunoassay 19 F41.1 E66.09 E66.9 20 Note: Persistent reduction for 3 months or more in an eGFR <60 mL/min/1.73 m2 defines CKD. Patients with eGFR values >/=60 mL/min/1.73 m2 may also have CKD if evidence of persistent proteinuria is present. The original MDRD equation for estimated GFR is not valid for patients less than 18 years of age. Additional information may be found at www.kdoqi.org. 21 Values below the stated reference ranges of AST and ALT can be seen in normal populations. Clinical correlation is suggested. 22 Elevated levels of HbA1c suggest the need for more aggressive treatment of glycemia. The [place] [employer] recommends that a primary goal of therapy should be a HbA1c of <7% and that physicians should re-evaluate the treatment regimen in patients with HbA1c values consistently >8%. 23 Reference Guidelines*: Desirable: ........... < 200 mg/dL Borderline High: ..... 200-239 mg/dL High: ................ >=240 mg/dL * The National Cholesterol Education Program (NCEP) 24 Reference Guidelines*: Normal: ............. < 150 mg/dL Borderline High: .... 150-199 mg/dL High: ............... 200-499 mg/dL Very High: .......... > 500 mg/dL * Source: National Cholesterol Education Program (NCEP) 25 Reference Guidelines*: Low HDL: ..... < 40 mg/dL Normal: ..... 40-60 mg/dL Desirable: ... > 60 mg/dL *The National Cholesterol Education Program(NCEP) 26 Reference Guidelines*: Optimal:........... <100 mg/dL Near Optimal....... 100-129 mg/dL Borderline High.... 130-159 mg/dL High............... 160-189 mg/dL Very High.......... >=190 mg/dL * Source: National Cholesterol Education Program (NCEP) 27 QUERY: Is the Patient Fasting? N Procedures Date Code Description Status 05/11/2018 58341 Stress Test Interpre And Report Only Completed 05/11/2018 79267 Stress Test Physician Super Only Completed 04/28/2018 44793 EKG-Tracing And Report Completed 03/17/2018 [id number] Mammogram Completed 04/11/2017 85062 Pressurized/Non-Pressurized Inhalation Treatment,Acute Completed Obstructio 11/22/2014 63100 Psychiatric Diag Eval W/Medical Service Completed 02/18/2012 35065 Anesthesia, Hysteroscopy, Hystersalpingography Completed 02/12/2012 77877 EKG Interpretation And Report Only Completed 07/30/2011 53592 Radiology, Hip Complete 2 Views Completed 12/21/2010 92103 EKG Interpretation And Report Only Completed 06/04/2010 0000 Due To Insurance Completed 05/19/2009 27329 Echocardiogram Complete Completed 05/19/2009 98085 Event Monitor Inter/Review Only Completed 05/19/2009 20595 EKG Interpretation And Report Only Completed 06/01/2007 53962 EKG Interpretation And Report Only Completed Encounters Type Date Location Provider Dx Diagnosis Office Visit 06/26/2018 Primary Care Office Scarlett Jay M54.5 Low back pain 8:30a CARLA Marin M54.16 Radiculopathy, lumbar region Office Visit 06/08/2018 9:00a Primary Care Misty, I10 Essential ( primary) Office CARLA Garland hypertension F41.1 Generalized anxiety disorder Office Visit 05/19/2018 1:00p Primary Care Maite Manuel, I10 Essential ( primary) Office hypertension F41.1 Generalized anxiety disorder R07.89 Other chest pain Office Visit 04/28/2018 2:40p Primary Care Maite Manuel, I10 Essential ( primary) Office hypertension F41.1 Generalized anxiety disorder R07.89 Other chest pain E78.2 Mixed hyperlipidemia K21.9 Gastro-esophageal reflux disease without esophagitis Office Visit 04/28/2018 8:30a Oncology Office Coco Shaver, 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 E61.1 Iron deficiency E53.9 Vitamin B deficiency, unspecified E55.9 Vitamin D deficiency, unspecified Z80.3 Family history of malignant neoplasm of breast Office Visit 04/14/2018 1:00p Oncology Office Coco Shaver 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 Z80.3 Family history of malignant neoplasm of breast R53.83 Other fatigue E66.09 Other obesity due to excess calories F41.1 Generalized anxiety disorder M79.7 Fibromyalgia Office Visit 06/13/2017 3:20p Primary Care Maite Manuel, E66.09 Other obesity Office MD due to excess calories F41.1 Generalized anxiety disorder I10 Essential (primary) hypertension N39.46 Mixed incontinence Office Visit 04/11/2017 11:40a Primary Care Maite Manuel, J06.9 Acute upper Office MD respiratory infection, unspecified Office Visit 03/26/2017 11:00a Primary Care Maite Manuel, F41.1 Generalized Office MD anxiety disorder E66.09 Other obesity due to excess calories I10 Essential (primary) hypertension Office Visit 03/11/2017 9:00a Primary Care Maite Manuel, I10 Essential ( primary) Office hypertension Office Visit 02/28/2017 8:40a Primary Care Maite Manuel, F41.1 Generalized anxiety Office MD disorder M79.7 Fibromyalgia E66.09 Other obesity due to excess calories 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 Office Visit 06/14/2015 8:30a Physical Medicine & Kori Davison MD M54.2 Cervicalgia Infectious Disease M79.1 Myalgia Office Visit 05/22/2015 2:20p Psych Carmine Heath F12.10 Cannabis abuseBright MD uncomplicated E66.9 Obesity, unspecified F33.41 Major depressive disorder, recurrent, in partial remission Office Visit 04/12/2015 3:30p Psych KumarNikolaseus E., F33.1 Major depressive MD disorder, recurrent, moderate F41.1 Generalized anxiety disorder F12.10 Cannabis abuse, uncomplicated Office Visit 01/23/2015 1:55p Psych Carmine Heath., F33.1 Major depressive MD disorder, recurrent, moderate F41.1 Generalized anxiety disorder F12.10 Cannabis abuse, uncomplicated Office Visit 07/30/2011 11:00a Orthopaedic Hernandez, 726.5 Enthesopathy Of Office Girish Torres MD Hip Region Office Visit 01/18/2010 5:00p decorator mannequin Office Emil Barber, 620.2 Ovarian Cyst Other M.D. & Unspec Plan of Treatment Future Appointment(s):10/07/2018 11:40 am - Maite Manuel MD at Primary Care [id number]/23/2018 2:30 pm - Coco Shaver DO at Oncology Office
[2018-08-24 19:27] VITALS: BP 133/85
--- NOTE | 2018-08-24 19:56 | UC ---
Ear Complaint HPI - HPI Summary HPI Summary: 53 y/o female presents to the urgent care c/o Pt heard something "buzzing around" her ear 2 days ago. Onset of pain today progressing to neck stiffness, inner ear pain and pain radiating down her neck. Red raised area noted on pt auricle with [facility]. - History of Current Complaint Chief Complaint: UCEar Stated Complaint: LEFT EAR PAIN Time Seen by Provider: 08/24/18 19:54 Hx Obtained From: Patient Hx Last Menstrual Period: 11/24/12 Pain Intensity: 5 - Allergies/Home Medications Allergies/Adverse Reactions: Allergies Allergy/AdvReac Type Severity Reaction Status Date / Time benazepril Allergy Hives Verified 08/24/18 19:16 losartan Allergy Hives Verified 08/24/18 19:16 Home Medications: Home Medications Amlodipine Besylate [Norvasc] 5 mg PO DAILY 08/24/18 [History Confirmed 08/24/18 ] busPIRone TAB* [Buspar TAB *] 15 mg PO TID 08/24/18 [History Confirmed 08/24/18] clonazePAM TAB(*) [Klonopin TAB(*)] 1 mg PO BID 08/24/18 [History Confirmed 01/02] hydroCHLOROthiazide [Hydrochlorothiazide] 12.5 mg PO DAILY 08/24/18 [History Confirmed 08/24/18] PMH/Surg Hx/FS Hx/Imm Hx - Surgical History Surgical History: Yes Surgery Procedure, Year, and Place: , 2004, [facility]. [place], 2006, [facility]. hysterectomy 04/2016 - Family History Known Family History: Positive: Hypertension - Social History Alcohol Use: Weekly Alcohol Amount: 2 Substance Use Type: None Smoking Status (MU): Former Smoker Type: Cigarettes Amount Used/How Often: up 1 pack 15 year Length of Time of Smoking/Using Tobacco: 2004 Have You Smoked in the Last Year: No When Did the Patient Quit Smoking/Using Tobacco: 2004 Physical Exam Vital Signs: Initial Vital Signs Temp 97.1 F 08/24/18 19:22 Pulse 74 08/24/18 19:22 Resp 18 08/24/18 19:22 BP 133/85 08/24/18 19:22 Pulse Ox 99 08/24/18 19:22 Ear Complaint Course/Dx - Differential Dx/Diagnosis Differential Diagnosis/HQI/PQRI: Otitis Externa, Otitis Media, Perforated TM, Other - auricle cellulits Provider Diagnosis: Cellulitis of auricle of left ear Discharge - Sign-Out/Discharge Documenting (check all that apply): Patient Departure - D/C home All imaging exams completed and their final reports reviewed: No Studies - Discharge Plan Condition: Stable Disposition: HOME Prescriptions: Bacitracin OINTMENT* 1 applic TOPICAL BID #1 tube Cephalexin CAP* [Keflex CAP*] 500 mg PO TID #20 cap Patient Education Materials: Cellulitis (ED) Referrals: Maite Manuel MD [Primary Care Provider] - 3 Days Additional Instructions: 1-Please take full course of Antibiotic. Take yogurts w/ probiotics or culturelle to protect your GI system 2-If redness and swelling doubles in size beyond after 48 hrs of taking antibiotic and fever develops please go to the ER immediately. 3-keep wound clean and dry and apply Bacitracin oint as directed 4-Please F/u with your PCP in 3 days if symptoms re not improving for further evaluation and treatment. - Billing Disposition and Condition Condition: STABLE Disposition: Home
[2018-08-24] MEDS ORDERED: Cephalexin CAP* 500 MG PO ONE (20:10)
== END 2018-08-24 20:20 | disposition home or self-care (01) ==
LOC: UCCORT 18:47
DX: H60.12 Cellulitis of left external ear (principal); Z87.891 Personal history of nicotine dependence
CPT/HCPCS: 99212; A9270-GY; G0463

== ENCOUNTER 2019-03-11 08:44 | Emergency (ER) | payer OTHER ==
--- OUTSIDE RECORDS SUMMARY | 2019-03-11 08:53 | XMS REPORT | Continuity of Care Document ---
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 Problems Provider Date Obesity Carmine [...] D deficiency Coco Shaver DO Onset: 04/28/2018 Screening for malignant neoplasm of colon Anjel Collier MD Onset: 01/18/2019 Social History Type Date Description Comments Sex Unknown Tobacco Use Start: Unknown End: Quit 2004 Unknown Smokeless Tobacco Never Used Smokeless Tobacco ETOH Use Currently consumes alcohol weekend Recreational Drug Use Denies Drug Use Tobacco Use Start: Unknown End: Patient is a former smoker Unknown Smoking Status Reviewed: 10/07/18 Patient is a former smoker Enjoy Exercising Does not enjoy exercising Tattoo/Piercing Tattoo Tattoo/Piercing Pierced ears Tattoo/Piercing Pierced Nasal Area Allergies, Adverse Reactions, Alerts Active Allergies Reaction Severity Comments Date Environmental 01/18/2010 Seasonal 01/18/2010 Clams GI 07/30/2011 Benazepril Cough, Wheezing 05/04/2018 Losartan Hives Severe hives 2018 Medications Active Medications SIG Qnty Indications Ordering Date Provider Suprep Bowel Prep Kit Complete first 354ml Z12.11 Anjel Collier, part of prep the MD Henning 17.5-3.13-1.6GM/177ML evening before Solution procedure and second part at least 4 hours before your procedure time Gas Relief take 1 tab day 2units Z12.11 Anjel Collier, 80mg Chewtabs before MD Henning colonoscopy and 1 tab day of colonoscopy early in the am Fluticasone Propionate 1 spray each 1units Maite Manuel, Nasal Brady 24- Hour nostril twice a MD Henning 50mcg/Act day Suspension Naproxen 1 by mouth twice 30tabs M54.5 Maite Manuel, 500mg Tablets a day with food MD Henning as needed for pain, avoid daily use Effexor XR 1 tab daily 30caps Maite Manuel, 37.5mg Caps ER 24HR MD Henning Hydrochlorothiazide Take 1 Tablet By 90tabs Maite Manuel, 12.5mg Mouth Once Daily MD Henning Tablets Amlodipine Besylate 1 by mouth every 90tabs Maite Manuel, 5mg Tablets day MD Henning Omeprazole 1 by mouth every 90caps Maite Manuel, 40mg Capsules DR day MD Henning Buspirone HCL 1 tab by mouth 270tabs Maite Manuel, 15mg Tablets three times a day MD Villareal Blood Pressure Kit take your blood 1units I10 Gagen, Kit pressure once to Anika, 8 twice daily as MS, NURSE [employer], CNM directed Clonidine HCL 1 tab by mouth at 90tabs Maite Manuel, 0.1mg Tablets bedtime MD Villareal Klonopin take one pill 60tabs Laron, 1mg Tablets twice a day as MD Smita 5 needed for anxiety/panic attacks ref [id number] Albuterol Sulfate albuterol sulfate 75ml Maite Manuel, (2.5mg/3ML) (2.5 mg/3ml) 0 0.083% Nebulizer 0.083% nebu Tamoxifen Citrate 1 daily 90tabs Boufal, 20mg Tablets DO Coco 0 Medications Administered in Office Medication SIG Qnty Indications Ordering Provider Date Vitamin B12 Injection 1000 BoufalCoco, DO 12/04/2018 mcg/Ml Injection Immunizations CPT Code Status Date Vaccine Lot # [id number] Given 10/07/2018 Tdap injection [id number] Given 12/13/2017 Influenza Virus Vaccine, Quadrivalent, 36 Mos+, .5ML Vital Signs Date Vital Result Comment 01/18/2019 10:34am BP Systolic Sitting Left Arm 125 mmHg BP Diastolic Sitting Left Arm 84 mmHg Body Temperature 97.9 F Heart Rate 67 /min Respiratory Rate 20 /min Height 62 inches 5'2" Weight 240.00 lb BMI (Body Mass Index) 43.9 kg/m2 BSA (Body Surface Area) 2.07 m2 Penrose body weight in kilograms 50 kg O2 % BldC Oximetry 99 % Ra Pain Level 0 12/23/2018 11:29am BP Systolic 137 mmHg BP Diastolic 97 mmHg Body Temperature 97.8 F Heart Rate 82 /min Respiratory Rate 18 /min Weight 235.25 lb O2 % BldC Oximetry 98 % Pain Level 0 Results Test Acquired Date Facility Test Result H/L Range Note CBC 12/04/2018 [facility] White Blood 7.0 K/uL Normal 3.1-10.7 1 W/Automated [address] Count Diff [place], [place] [id number] [phone] Red Blood Count 4.24 M/uL Normal 3.90-5.40 Hemoglobin 12.6 gm/dL Normal 11.6-15.8 Hematocrit 38.2 % Normal 36.0-46.1 Mean Cell Volume 90.1 fl Normal 80.9-99.0 Mean Corpuscular HGB 29.7 pg Normal 25.9-32.7 Mean Corpuscular HGB Conc 33.0 g/dL Normal 30.8-34.3 Platelet Count 253 K/uL Normal 155-360 Red Cell Distri Width SD 44.8 fl Normal 36-47 Red Cell Distri Width %CV 13.7 % Normal 11.7-14.4 Mean Platelet Volume 9.9 fl Normal 8.9-12.4 Neut% 47.8 % Normal 40.4-72.8 Lymph % 42.7 % High 20.0-42.0 [place] % 4.6 % Normal 4.3-13.2 Eo% 3.6 % Normal 0.0-6.6 Bas% 0.7 % Normal 0.0-1.1 Immature Grans 0.6 % Normal 0.0-5.0 NRBC % 0.0 /100WBC < 10/ 100 WBC Neut# 3.36 K/uL Normal 1.8-7.0 Lymph # 3.00 K/uL Normal 1.0-4.0 [place] # 0.32 K/uL Normal 0.3-0.9 Eos # 0.25 K/uL Normal 0.0-0.5 Baso # 0.05 K/uL Normal 0.0-0.1 Immature Grans Absolute 0.04 K/uL NRBC # 0.00 K/uL [facility] 12/04/2018 [facility] Glucose 78 mg/dL Normal 74-106 Metabolic Panel [address] [place] [address] [phone] BUN 17 mg/dL Normal 7-18 Creatinine 0.8 mg/dL Normal 0.6-1.3 Glom Filtration Rate, Estimate >60 mL/min >60 If >60 mL/min >60 2 BUN/Creat 21.2 ratio Sodium 142 mmol/L Normal 136-145 Potassium 3.4 mmol/L Low 3.5-5.1 Chloride 105 mmol/L Normal 98-107 Carbon Dioxide 32 mmol/L Normal 21-32 Anion Gap 5 mEq/L Low 8-16 Calcium 8.5 mg/dL Normal 8.5-10.1 Total Protein 6.6 g/dL Normal 6.4-8.2 Albumin 3.7 g/dL Normal 3.4-5.0 Globulin 2.9 g/dL Normal 1.9-4.3 Alb/Glob 1.3 ratio Bilirubin,Total 0.7 mg/dL Normal 0.2-1.0 Sgot/Ast 28 U/L Normal 15-37 SGPT/Alt 35 U/L Normal 12-78 Alkaline Phosphatase 49 U/L Normal 45-117 Iron-Tibc-%Sat 12/04/2018 [facility] Serum Iron 120 g/dL Normal 50-[address] [place] [address] [phone] Total Iron Binding Capacity 309 g/dL Normal 250-450 Transferrin %Saturation 39 % Normal 12-57 Laboratory test 12/04/2018 [facility] Ferritin 83 ng/mL Normal 8-252 finding [address] [place] [address] [phone] Vitamin B12 And 12/04/2018 [facility] Vitamin B12 442 pg/mL Normal 193-986 Folate [address] [place] [address] [phone] Folic Acid 13.7 ng/mL Normal 3.1-17.5 Laboratory 12/04/2018 [facility] Vitamin 43.2 30.0-100.0 3 test finding [address] D,25-Hydroxy ng/mL [place], [place] [id number] [phone] CBC 07/22/2018 [facility] White Blood 8.1 K/uL Normal 3.1-10.7 4 W/Automated [address] [place] [address] [phone] Red Blood Count 4.46 M/uL Normal 3.90-5.40 Hemoglobin 13.2 gm/dL Normal 11.6-15.8 Hematocrit 40.0 % Normal 36.0-46.1 Mean Cell Volume 89.7 fl Normal 80.9-99.0 Mean Corpuscular HGB 29.6 pg Normal 25.9-32.7 Mean Corpuscular HGB Conc 33.0 g/dL Normal 30.8-34.3 Platelet Count 278 K/uL Normal 155-360 Red Cell Distri Width SD 43.6 fl Normal 36-47 Red Cell Distri Width %CV 13.2 % Normal 11.7-14.4 Mean Platelet Volume 9.7 fl Normal 8.9-12.4 Neut% 56.3 % Normal 40.4-72.8 Lymph % 34.9 % Normal 20.0-42.0 [place] % 4.9 % Normal 4.3-13.2 Eo% 2.2 % Normal 0.0-6.6 Bas% 1.0 % Normal 0.0-1.1 Immature Grans 0.7 % Normal 0.0-5.0 NRBC % 0.0 /100WBC < 10/ 100 WBC Neut# 4.57 K/uL Normal 1.8-7.0 Lymph # 2.84 K/uL Normal 1.0-4.0 [place] # 0.40 K/uL Normal 0.3-0.9 Eos # 0.18 K/uL Normal 0.0-0.5 Baso # 0.08 K/uL Normal 0.0-0.1 Immature Grans Absolute 0.06 K/uL NRBC # 0.00 K/uL [facility] 07/22/2018 [facility] Glucose 88 mg/dL Normal 74-106 Metabolic Panel [address] [place], [place] [id number] [phone] BUN 18 mg/dL Normal 7-18 Creatinine 0.8 mg/dL Normal 0.6-1.3 Glom Filtration Rate, Estimate >60 mL/min >60 If >60 mL/min >60 5 BUN/Creat 22.5 ratio Sodium 140 mmol/L Normal 136-145 Potassium 3.3 mmol/L Low 3.5-5.1 Chloride 105 mmol/L Normal 98-107 Carbon Dioxide 30 mmol/L Normal 21-32 Anion Gap 5 mEq/L Low 8-16 Calcium 9.0 mg/dL Normal 8.5-10.1 Total Protein 7.3 g/dL Normal 6.4-8.2 Albumin 3.8 g/dL Normal 3.4-5.0 Globulin 3.5 g/dL Normal 1.9-4.3 Alb/Glob 1.1 ratio Bilirubin,Total 0.4 mg/dL Normal 0.2-1.0 Sgot/Ast 25 U/L Normal 15-37 SGPT/Alt 38 U/L Normal 12-78 Alkaline Phosphatase 65 U/L Normal 45-117 Iron-Tibc-%Sat 07/22/2018 [facility] Serum Iron 68 g/dL Normal 50-170 [address] [place] [address] [phone] Total Iron Binding Capacity 361 g/dL Normal 250-450 Transferrin %Saturation 19 % Normal 12-57 Laboratory test 07/22/2018 [facility] Ferritin 94 ng/mL Normal 8-252 finding [address] [place] [address] [phone] Vitamin B12 And 07/22/2018 [facility] Vitamin B12 490 pg/mL Normal 193-986 Folate [address] [place] [address] [phone] Folic Acid 14.0 ng/mL Normal 3.1-17.5 Laboratory test 07/22/2018 [facility] Vitamin 44.3 30.0-100.0 6 finding [address] [facility],25-Hydroxy ng/mL [place], [place] [id number] [phone] Thyroid Stim Hormone 2.44 uIU/mL Normal 0.30-4.20 1 E61.1 E53.9 E55.9 2 Note: Persistent reduction for 3 months [...] D deficiency has been defined by the [place] of [employer] and an Endocrine Society practice guideline as a level of serum 25-OH vitamin D less than 20 ng/mL (1,2). The Endocrine Society went on to further define vitamin D insufficiency as a level between 21 and 29 ng/mL (2). 1. IOM ([place] of [employer]). 2010. Dietary reference intakes for calcium and D. [place]: The National Academies Press. 2. Jose Roberto MF, Kirstin [place], Janeth ENRIQUEZ, et al. Evaluation, treatment, and prevention of vitamin D deficiency: an Endocrine Society clinical practice guideline. JCEM. 2010; 96(7):1911-30. Performed at: RN - [facility] [address] [id number] Plant Equipment Engineer: Jasmyn Hutchinson MD, Phone: [phone] 4 D24.2 E61.1 E53.9 5 Note: Persistent reduction for 3 months or more in an eGFR <60 mL/min/1.73 m2 defines CKD. Patients with eGFR values >/=60 mL/min/1.73 m2 may also have CKD if evidence of persistent proteinuria is present. The original MDRD equation for estimated GFR is not valid for patients less than 18 years of age. Additional information may be found at www.kdoqi.org. 6 Vitamin D deficiency has been defined by the [place] [employer] and an Endocrine Society practice guideline as a level of serum 25-OH vitamin D less than 20 ng/mL (1,2). The Endocrine Society went on to further define vitamin D insufficiency as a level between 21 and 29 ng/mL (2). 1. IOM ([place] [employer]). 2010. Dietary reference intakes for calcium and D. [place]: The National Academies Press. 2. Jose Roberto MF, Kirstin POWELL, Janeth ENRIQUEZ, et al. Evaluation, treatment, and prevention of vitamin D deficiency: an Endocrine Society clinical practice guideline. JCEM. 2010; 96(7):1911-30. 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 E61.1 Iron deficiency E55.9 Vitamin D deficiency, unspecified E53.9 Vitamin B deficiency, unspecified Office Visit 12/04/2018 8:00a Oncology Office Coco Shaver, 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 E61.1 Iron deficiency E53.9 Vitamin B deficiency, unspecified Office Visit 10/07/2018 11:40a Primary Care Maite Manuel, I10 Essential ( primary) Office MD hypertension F41.1 Generalized anxiety disorder Z23 Encounter for immunization Z12.11 Encounter for screening for malignant neoplasm of colon Office Visit 08/18/2018 11:00a Primary Care Maite Manuel, M54.16 Radiculopathy, Office MD lumbar region I10 Essential (primary) hypertension F41.1 Generalized anxiety disorder Office Visit 07/22/2018 9:30a Oncology Office Sivakumar, E61.1 Iron deficiency Coco, DO E53.9 Vitamin B deficiency, unspecified E55.9 Vitamin D deficiency, unspecified Z80.3 Family history of malignant neoplasm of breast 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 Assessments Date Code Description Provider 01/18/2019 Z12.11 Encounter for screening for malignant neoplasm Anjel Collier MD of colon 01/18/2019 K21.9 Gastro-esophageal reflux disease without Anjel Collier MD esophagitis 12/23/2018 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 Coco Shaver, DO 12/23/2018 E61.1 Iron deficiency Lyric Shavert, DO 12/23/2018 E55.9 Vitamin D deficiency Lyric Shavert, DO 12/23/2018 E53.9 Vitamin B deficiency Lyric Shavert, DO 12/04/2018 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 Lyric Shavert, DO 12/04/2018 E61.1 Iron deficiency Lyric Shavert, DO 12/04/2018 E53.9 Vitamin B deficiency, unspecified Lyric Shavert, DO 10/07/2018 I10 Essential (primary) hypertension Maite Manuel MD 10/07/2018 F41.1 Generalized anxiety disorder Maite Manuel MD 10/07/2018 Z23 Encounter for immunization Maite Manuel MD 10/07/2018 Z12.11 Encounter for screening for malignant neoplasm Maite Manuel MD of colon 08/18/2018 M54.16 Radiculopathy, lumbar region Maite Manuel MD 08/18/2018 I10 Essential (primary) hypertension Maite Manuel MD 08/18/2018 F41.1 Generalized anxiety disorder Maite Manuel MD 07/22/2018 E61.1 Iron deficiency Coco Shaver, DO 07/22/2018 E53.9 Vitamin B deficiency, unspecified Coco Shaver, DO 07/22/2018 E55.9 Vitamin D deficiency, unspecified Coco Shaver, 07/22/2018 Z80.3 Family history of malignant neoplasm of breast Coco Shaver, 07/22/2018 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 Coco Shaver DO Plan of Treatment Future Appointment(s):03/26/2019 8:30 am - Coco ShaverDO at Oncology [id number]/22/2019 10:00 am - Oncology Nurse at Oncology [id number]/18/2019 - Anjel Collier MDZ12.11 Encounter for screening for malignant neoplasm of colonNew Medication:Suprep Bowel Prep Kit 17.5-3.13-1.6 GM/177ML - Complete first part of prep the evening before procedure and second part at least 4 hours before your procedure timeGas Relief 80 mg - take 1 tab day before colonoscopy and 1 tab day of colonoscopy early in the amNew Orders:Colonoscopy, Ordered: K21.9 Gastro-esophageal reflux disease without esophagitisComments:H2RA as needed;Antireflux lifestyle modifications Functional Status Functional Condition Comment Date Status Independent with all ADL's Active Mental Status Description No Information Available Referrals Refer to Reason for Referral Status Appt Date Chai Castillo MD screening colonoscopy Scheduled 01/18/2019 11 Nathalie Mobley [address] [address] [phone]
--- OUTSIDE RECORDS SUMMARY | 2019-03-11 08:53 | XMS REPORT | Continuity of Care Document ---
:1965 External Reference #:[id number] Author Name Anika Andino, MS, INTERNSHIP COORDINATOR-C, CNM (transmitted by agent of provider Bettie Hood) Address [address] [place] [address] Care Team Providers Name Role Phone Valerie Duncan MD - Internal Care Team Information Digital Production Manager [phone] Medicine Problems Active Problems Provider Date Obesity Carmine [...] a former smoker Unknown Smoking Status Reviewed: 02/26/19 Patient is a former smoker Enjoy Exercising Does not enjoy exercising Tattoo/Piercing Tattoo Tattoo/Piercing Pierced ears Tattoo/Piercing Pierced Nasal Area Allergies, Adverse Reactions, Alerts Active Allergies Reaction Severity Comments Date Environmental 01/18/2010 Seasonal 01/18/2010 Clams GI 07/30/2011 Benazepril Cough, Wheezing 05/04/2018 Losartan Hives Severe hives 2018 Medications Active Medications SIG Qnty Indications Ordering Date Provider Venlafaxine HCL ER take 1 capsule by 30capbao Palma, 37.5mg Caps mouth once daily MD Milady Reyes ER 24HR Suprep Bowel Prep Kit Complete first 354ml Z12.Anjel Toribio, part of prep the MD Henning 17.5-3.13-1.6GM/177ML evening before Solution procedure and second part at least 4 hours before your procedure time Gas Relief take 1 tab day 2units Z12.11 Anjel Collier, 80mg Chewtabs before MD Henning colonoscopy and 1 tab day of colonoscopy early in the am Fluticasone Propionate 1 spray each 1units Maite Manuel, Nasal [place] 24- Hour nostril twice a MD Henning 50mcg/Act day Suspension Naproxen 1 by mouth twice 30tabs M54.5 Maite Manuel, 500mg Tablets a day with food MD Henning as needed for pain, avoid daily use Hydrochlorothiazide Take 1 Tablet By 90tabs Maite Manuel, 12.5mg Mouth Once Daily MD Henning Tablets Amlodipine Besylate 1 by mouth every 90tabs Ratnasingam, 5mg Tablets MD Milady Will Omeprazole 1 by mouth every 90caps Ratnasingam, 40mg Capsules DR MD Milady Will Buspirone HCL 1 tab by mouth 270tabs Ratnasingam, 15mg Tablets three times a day MD Valerie 8 Blood Pressure Kit take your blood 1units I10 Gagen, Kit pressure once to Anika, 8 twice daily as , WAQAR, CNM directed Clonidine HCL 1 tab by mouth at 90tabs Ratnasingam, 0.1mg Tablets bedtime MD Valerie 8 Klonopin take one pill 60tabs Ratnasing, 1mg Tablets twice a day as MD Valerie 5 needed for anxiety/panic attacks ref [id number] Albuterol Sulfate albuterol sulfate 75ml Kaleb, Maite, (2.5mg/3ML) (2.5 mg/3ml) 0 0.083% Nebulizer 0.083% nebu Tamoxifen Citrate 1 daily 90tabs Boufal, 20mg Tablets DO Coco 0 Medications Administered in Office Medication SIG Qnty Indications Ordering Provider Date Vitamin B12 Injection 1000 Coco Shaver DO 12/04/2018 mcg/Ml Injection Immunizations CPT Code Status Date Vaccine Lot # [id number] Given 10/07/2018 Tdap injection [id number] Given 12/13/2017 Influenza Virus Vaccine, Quadrivalent, 36 Mos+, .5ML Vital Signs Date Vital Result Comment 02/26/2019 10:31am BP Systolic Sitting Left Arm 132 mmHg BP Diastolic Sitting Left Arm 86 mmHg Body Temperature 97.6 F Heart Rate 77 /min Respiratory Rate 18 /min Height 62 inches 5'2" Weight 234.00 lb BMI (Body Mass Index) 42.8 kg/m2 BSA (Body Surface Area) 2.04 m2 [place] body weight in kilograms 50 kg O2 % BldC Oximetry 97 % ra 01/18/2019 10:34am BP Systolic Sitting Left Arm 125 mmHg BP Diastolic Sitting Left Arm 84 mmHg Body Temperature 97.9 F Heart Rate 67 /min Respiratory Rate 20 /min Height 62 inches 5'2" Weight 240.00 lb Pain Level 0 BMI (Body Mass Index) 43.9 kg/m2 BSA (Body Surface Area) 2.07 m2 [place] body weight in kilograms 50 kg O2 % BldC Oximetry 99 % Ra Results Test Acquired Date Facility Test Result H/L Range Note CBC 12/04/2018 [facility] White Blood 7.0 K/uL Normal 3.1-10.7 1 W/Automated [address] [place] [address] [phone] Red Blood Count 4.24 M/uL Normal 3.90-5.40 [...] 40.4-72.8 Lymph % 42.7 % High 20.0-42.0 Thomas % 4.6 % Normal 4.3-13.2 Eo% 3.6 % Normal 0.0-6.6 Bas% 0.7 % Normal 0.0-1.1 Immature Grans 0.6 % Normal 0.0-5.0 NRBC % 0.0 /100WBC < 10/ 100 WBC Neut# 3.36 K/uL Normal 1.8-7.0 Lymph # 3.00 K/uL Normal 1.0-4.0 Thomas # 0.32 K/uL Normal 0.3-0.9 Eos # 0.25 K/uL Normal 0.0-0.5 Baso # 0.05 K/uL Normal 0.0-0.1 Immature Grans Absolute 0.04 K/uL NRBC # 0.00 K/uL Comprehensive 12/04/2018 [facility] Glucose 78 mg/dL Normal 74-106 Metabolic Panel [address] [place] [address] [phone] BUN 17 mg/dL Normal 7-18 Creatinine 0.8 [...] Phosphatase 49 U/L Normal 45-117 Iron-Tibc-%Sat 12/04/2018 [facility] Serum Iron 120 g/dL Normal 50-170 [address] [place] [address] [phone] Total Iron Binding Capacity 309 g/dL Normal 250-450 Transferrin %Saturation 39 % Normal 12-57 Laboratory test 12/04/2018 [facility] Ferritin 83 ng/mL Normal 8-252 finding [address] [place] [address] [phone] Vitamin B12 And 12/04/2018 [facility] Vitamin B12 442 pg/mL Normal 193-986 Folate [address] [place] [address] [phone] Folic Acid 13.7 ng/mL Normal 3.1-17.5 Laboratory test 12/04/2018 [facility] Vitamin 43.2 30.0-100.0 3 finding 134 [facility] D,25-Hydroxy ng/[place] [address] [phone] 1 E61.1 E53.9 E55.9 2 Note: Persistent [...] D deficiency has been defined by the [place] of [employer] and an Endocrine Society practice guideline as a level of serum 25-OH vitamin D less than 20 ng/mL (1,2). The Endocrine Society went on to further define vitamin D insufficiency as a level between 21 and 29 ng/mL (2). 1. IOM ([place] of [employer]). 2010. Dietary reference intakes for calcium and D. [place]: The National Academies Press. 2. Jose Roberto MF, Kirstin NC, Janeth ENRIQUEZ, et al. Evaluation, treatment, and prevention of vitamin D deficiency: an Endocrine Society clinical practice guideline. JCEM. 2010; 96(7):1911-30. Performed at: RN - [facility] [address] [id number] Floor Attendant: Jasmyn Hutchinson MD, Phone: [phone] Procedures Date Code Description Status 02/02/2019 17189 Eye Exam New Patient Comprehensive Completed 12/04/2018 16213 Theraputic Or Diagnostic Injection Completed 03/17/2018 [id number] Mammogram Completed Medical Devices Description No Information Available Encounters Type Date Location Provider Dx Diagnosis Office Visit 02/26/2019 Primary Care Thu, I10 Essential (primary) 10:30a Office MS Anika, hypertension INTERNSHIP COORDINATOR-C, CNM F41.1 Generalized anxiety disorder K21.9 Gastro-esophageal reflux disease without esophagitis 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 E55.9 Vitamin D deficiency, unspecified E78.2 Mixed hyperlipidemia M79.7 Fibromyalgia M54.5 Low back pain Office Visit 01/18/2019 10:30a Anjel Bowman MD Z12.11 Encounter for screening for malignant neoplasm of colon K21.9 Gastro-esophageal reflux disease without esophagitis Office Visit 12/23/2018 11:30a Oncology Office Coco Shaver, 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 E61.1 Iron deficiency E55.9 Vitamin D deficiency, unspecified E53.9 Vitamin B deficiency, unspecified Office Visit 12/04/2018 8:00a Oncology Office Coco Shaver, 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 E61.1 Iron deficiency E53.9 Vitamin B deficiency, unspecified Office Visit 10/07/2018 11:40a Primary Care Maite Manuel, I10 Essential ( primary) Office hypertension F41.1 Generalized anxiety disorder Z23 Encounter for immunization Z12.11 Encounter for screening for malignant neoplasm of colon Assessments Date Code Description Provider 03/04/2019 Z12.11 Encounter for screening for Chandan Merchant PA malignant neoplasm of colon 02/26/2019 I10 Essential (primary) hypertension Anika Andino, MS, INTERNSHIP COORDINATOR-C , CNM 02/26/2019 F41.1 Generalized anxiety disorder Anika Andino, MS, INTERNSHIP COORDINATOR-C, CNM 02/26/2019 K21.9 Gastro-esophageal reflux disease Anika Andino, MS, INTERNSHIP COORDINATOR -C, without esophagitis CNM 02/26/2019 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 Anika Andino, MS, INTERNSHIP COORDINATOR-C , CNM 02/26/2019 E55.9 Vitamin D deficiency Anika Andino, MS, INTERNSHIP COORDINATOR-C, CNM 02/26/2019 E78.2 Mixed hyperlipidemia Nesha Andinoline, MS, INTERNSHIP COORDINATOR-C, CNM 02/26/2019 M79.7 Fibromyalgia Nesha Andinoline, MS, INTERNSHIP COORDINATOR-C, CNM 02/26/2019 M54.5 Low back pain Anika Andino, MS, INTERNSHIP COORDINATOR-C, CNM 02/02/2019 H50.111 Monocular exotropia, right eye Chai Mendez MD 02/02/2019 H04.123 Dry eye syndrome of bilateral Chai Mendez MD lacrimal glands 02/02/2019 H02.403 Unspecified ptosis of bilateral Chai Mendez MD eyelids 01/18/2019 Z12.11 Encounter for screening for Anjel Collier MD malignant neoplasm of colon 01/18/2019 K21.9 Gastro-esophageal reflux disease Anjel Collier MD without esophagitis 12/23/2018 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 Coco Shaver, DO 12/23/2018 E61.1 Iron deficiency Coco Shaver, DO 12/23/2018 E55.9 Vitamin D deficiency Coco Shaver, DO 12/23/2018 E53.9 Vitamin B deficiency Coco Shaver, DO 12/04/2018 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 Coco Shaver DO 12/04/2018 E61.1 Iron deficiency Coco Shaver DO 12/04/2018 E53.9 Vitamin B deficiency, unspecified Coco Shaver DO 10/07/2018 I10 Essential (primary) hypertension Maite Manuel MD 10/07/2018 F41.1 Generalized anxiety disorder Maite Manuel MD 10/07/2018 Z23 Encounter for immunization Maite Manuel MD 10/07/2018 Z12.11 Encounter for screening for Maite Manuel MD malignant neoplasm of colon Plan of Treatment Future Appointment(s):04/09/2019 10:30 am - Anika Andino MS, INTERNSHIP COORDINATOR-C, CNM at Primary Care Vlofhn4703/15/2019 1:30 pm - Anjel Collier MD at Operating Room03/23/2019 2:00 pm - Anjel Collier MD at GI03/26/2019 8:30 am - Coco Shaver DO at Oncology Jdeknv5703/22/2019 10:00 am - Oncology Nurse at Oncology Znrscc8403/04/2019 - Chandan Merchant PAZ12.11 Encounter for screening for malignant neoplasm of colonComments:Proceed with upcoming colonoscopy. Functional Status Functional Condition Comment Date Status Independent with all ADL's Active Mental Status Description No Information Available Referrals Refer to Reason for Referral Status Appt Date Chai Castillo MD screening colonoscopy Closed 01/18/2019 [address] [place] [address] [phone]
--- OUTSIDE RECORDS SUMMARY | 2019-03-11 08:53 | XMS REPORT | Continuity of Care Document ---
:1965 External Reference #:[id number] Author Name Chai Mendez MD Address [address] [place] [address] Care Team Providers Name Role Phone Valerie Duncan MD - Internal Care Team Information Electrical Manufacturing Engineer Medicine Problems Active Problems Provider Date Obesity [...] a former smoker Unknown Smoking Status Reviewed: 02/02/19 Patient is a former smoker Enjoy Exercising Does not enjoy exercising Tattoo/Piercing Tattoo Tattoo/Piercing Pierced ears Tattoo/Piercing Pierced Nasal Area Allergies, Adverse Reactions, Alerts Active Allergies Reaction Severity Comments Date Environmental 01/18/2010 Seasonal 01/18/2010 Clams GI 07/30/2011 Benazepril Cough, Wheezing 05/04/2018 Losartan Hives Severe hives 2018 Medications Active Medications SIG Qnty Indications Ordering Date Provider Venlafaxine HCL ER Take 1 Capsule By 30capbao Hood, 37.5mg Caps Mouth Once Daily MD Bettie, 9 ER 24HR PHD Suprep Bowel Prep Kit Complete first 354ml [...] 1 spray each 1units Maite Manuel, Nasal [place] 24- Hour nostril twice a MD Henning [...] Pressure Kit take your blood 1units I10 [place], Kit pressure once to Anika, 8 twice daily as MS, FINISH MOLDER-C, CNM directed Clonidine HCL 1 tab by mouth at 90tabs KalebMaite, 0.1mg Tablets bedtime 8 Klonopin take one pill 60tabs [place], 1mg Tablets twice a day as MD Smita 5 needed for anxiety/panic attacks ref [id number] Albuterol Sulfate albuterol sulfate 75ml KalebMaite prasad, (2.5mg/3ML) (2.5 mg/3ml) 0 0.083% Nebulizer 0.083% nebu Tamoxifen Citrate 1 daily 90tabs Boufal, 20mg Tablets Coco, 0 History Medications Effexor XR 1 tab daily 30caps Ratnasingam [place], 08/18/2018 - 37.5mg 02/05/2019 Caps ER 24HR Medications Administered in Office Medication SIG Qnty Indications Ordering Provider Date Vitamin B12 Injection 1000 Coco Shaver, DO 12/04/2018 mcg/Ml Injection Immunizations CPT Code Status Date Vaccine Lot # [id number] Given 10/07/2018 Tdap injection [id number] Given 12/13/2017 Influenza Virus Vaccine, Quadrivalent, 36 Mos+, .5ML Vital Signs Date Vital Result Comment 01/18/2019 10:34am BP Systolic Sitting Left Arm 125 mmHg BP Diastolic Sitting Left Arm 84 mmHg Body Temperature 97.9 F Heart Rate 67 /min Respiratory Rate 20 /min Height 62 inches 5'2" Weight 240.00 lb BMI (Body Mass Index) 43.9 kg/m2 BSA (Body Surface Area) 2.07 m2 [place] body weight in kilograms 50 kg O2 [...] 1 W/Automated [address] [place] [address] [phone] Red Blood Count 4.24 M/uL Normal 3.90-5.40 [...] 40.4-72.8 Lymph % 42.7 % High 20.0-42.0 [place] % 4.6 % Normal 4.3-13.2 Eo% 3.6 % Normal 0.0-6.6 Bas% 0.7 % Normal 0.0-1.1 Immature Grans 0.6 % Normal 0.0-5.0 NRBC % 0.0 /100WBC < 10/ 100 WBC Neut# 3.36 K/uL Normal 1.8-7.0 Lymph # 3.00 K/uL Normal 1.0-4.0 [place] # 0.32 K/uL Normal 0.3-0.9 Eos # 0.25 K/uL Normal 0.0-0.5 Baso # 0.05 K/uL Normal 0.0-0.1 Immature Grans Absolute 0.04 K/uL NRBC # 0.00 K/uL [facility] 12/04/2018 [facility] Glucose 78 mg/dL Normal 74-106 Metabolic Panel [address] [place], [place] [address] [phone] BUN 17 mg/dL Normal 7-18 Creatinine 0.8 [...] Phosphatase 49 U/L Normal 45-117 Iron-Tibc-%Sat 12/04/2018 [facility] Serum Iron 120 g/dL Normal 50-170 [address] [place], [place] [address] [phone] Total Iron Binding Capacity 309 g/dL Normal 250-450 Transferrin %Saturation 39 % Normal 12-57 Laboratory test 12/04/2018 [facility] Ferritin 83 ng/mL Normal 8-252 finding [address] [place], [place] [address] [phone] Vitamin B12 And 12/04/2018 [facility] Vitamin B12 442 pg/mL Normal 193-986 Folate [address] [place] [address] [phone] Folic Acid 13.7 ng/mL Normal 3.1-17.5 Laboratory test 12/04/2018 [facility] Vitamin 43.2 30.0-100.0 3 finding [address] D,25-Hydroxy ng/[place] [address] [phone] 1 E61.1 E53.9 E55.9 2 Note: Persistent [...] D deficiency has been defined by the [place] of [employer] and an Endocrine Society practice guideline as a level of serum 25-OH vitamin D less than 20 ng/mL (1,2). The Endocrine Society went on to further define vitamin D insufficiency as a level between 21 and 29 ng/mL (2). 1. IOM ([place] of [employer]). 2010. Dietary reference intakes for calcium and D. [place]: The National Academies Press. 2. Jose Roberto MF, Kirstin POWELL, Janeth ENRIQUEZ, et al. Evaluation, treatment, and prevention of vitamin D deficiency: an Endocrine Society clinical practice guideline. JCEM. 2010; 96(9):1581-30. Performed at: RN - [facility] [address] [id number] Mechanical Commissioning Engineer: Jasmyn Hutchinson MD, Phone: [phone] Procedures Date Code Description Status 02/02/2019 87886 Eye Exam New Patient Comprehensive Completed 12/04/2018 55346 Theraputic Or Diagnostic Injection Completed 08/18/2018 75397 Brief Emotional/Behav Assessment W/ Scoring Doc Per Completed Standard Inst 03/17/2018 [id number] Mammogram Completed Medical Devices Description No Information Available Encounters Type Date Location Provider Dx Diagnosis Office Visit 01/18/2019 10:30a Anjel Bowman MD Z12.11 Encounter for screening for malignant neoplasm of colon K21.9 Gastro-esophageal reflux disease without esophagitis Office Visit 12/23/2018 11:30a Oncology Office Coco Shaver, 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 E61.1 Iron deficiency E55.9 Vitamin D deficiency, unspecified E53.9 Vitamin B deficiency, unspecified Office Visit 12/04/2018 8:00a Oncology Office Coco Shaver D24.2 Benign neoplasm [...] Essential (primary) hypertension F41.1 Generalized anxiety disorder Assessments Date Code Description Provider 02/02/2019 H50.111 Monocular exotropia, right eye Cahi Mendez MD 02/02/2019 H04.123 Dry eye syndrome of bilateral lacrimal glands Chai Mendez MD 02/02/2019 H02.403 Unspecified ptosis of bilateral eyelids Chai Mendez MD 01/18/2019 Z12.11 Encounter for screening for malignant Anjel Collier MD neoplasm of colon 01/18/2019 K21.9 Gastro-esophageal reflux disease without Anjel Collier MD esophagitis 12/23/2018 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 MiguelamaLyrict, DO 12/23/2018 E61.1 Iron deficiency Lyric Shavert, [...] 10/07/2018 Z12.11 Encounter for screening for malignant Maite Manuel MD neoplasm of colon 08/18/2018 M54.16 Radiculopathy, lumbar region Maite Manuel MD 08/18/2018 I10 Essential (primary) hypertension Maite Manuel MD 08/18/2018 F41.1 Generalized anxiety disorder Maite Manuel MD Plan of Treatment Future Appointment(s):03/15/2019 1:00 pm - Anjel Collier MD at Operating Room03/23/2019 2:00 pm - Anjel Collier MD at GI03/05/2019 9:00 am - Chandan Merchant PA at Wqfirwa5503/26/2019 8:30 am - Coco Shaver DO at Oncology Mdwtox5103/22/2019 10:00 am - Oncology Nurse at Oncology Qtfqni1202/02/2019 - Chai Mendez MDH50.111 Monocular exotropia, right eyeComments:- consecutive xt following strabismus surgery with dr lagos- good control- if becomes bothersome, ok refer for further evalFollow up:1-2 years exam or as gocpsiK05.123 Dry eye syndrome of bilateral lacrimal glandsComments:- warm compresses- artificial tears both eyes- consider ointment at night- can consider punctal occlusion or cmanjqqiJ63.403 Unspecified ptosis of bilateral eyelidsComments:- s/p ptosis repair with dr benitez Functional Status Functional Condition Comment Date Status Independent with all ADL's Active Mental Status Description No Information Available Referrals Refer to Reason for Referral Status Appt Date Chai Castillo MD screening colonoscopy Closed 01/18/2019 [address] [place] [address] [phone]
--- OUTSIDE RECORDS SUMMARY | 2019-03-11 08:53 | XMS REPORT | Continuity of Care Document ---
:1965 External Reference #:[id number] Author Name Chandan Merchant PA Address [address] [facility], [address] [place] [address] Care Team Providers Name Role Phone Valerie Duncan MD - Internal Care Team Information Staff Mechanical Engineer [phone] Medicine Problems Active Problems Provider Date Obesity Carmine Heath MD Onset: 05/22/2015 Cannabis abuse, uncomplicated Carmien Heath MD Onset: 05/22/2015 Neck pain Kori [...] 1 spray each 1units Maite Manuel, Nasal [place] 24- Hour nostril twice a MD Henning 50mcg/Act day Suspension Naproxen 1 by mouth twice 30tabs M54.5 Maite Manuel, 500mg Tablets a day with food MD Henning as needed for pain, avoid daily use Hydrochlorothiazide Take 1 Tablet By 90tabs Maite Manuel, 12.5mg Mouth Once Daily MD Henning Tablets Amlodipine Besylate 1 by mouth every 90tabs Ratnasingam, 5mg Tablets day MD Milady Padilla Omeprazole 1 by mouth every 90caps Ratnasingam, 40mg Capsules DR MD Milady Will Buspirone HCL 1 tab by mouth 270tabs Ratnasingam, 15mg Tablets three times a day MD Mono Padilla Blood Pressure Kit take your blood 1units I10 Gagen, Kit pressure once to Anika, 8 twice daily as MS, [employer], CNM directed Clonidine HCL 1 tab by mouth at 90tabs Ratnasingam, 0.1mg Tablets bedtime MD Valerie 8 Klonopin take one pill 60tabs Ratnasingam, 1mg Tablets twice a day as MD Valerie 5 needed for anxiety/panic attacks ref [id number] Albuterol Sulfate albuterol sulfate 75ml Kaleb, Maite, (2.5mg/3ML) (2.5 mg/3ml) 0 0.083% Nebulizer 0.083% nebu Tamoxifen Citrate 1 daily 90tabs Boufal, 20mg Tablets DO Coco 0 Medications Administered in Office Medication SIG Qnty Indications Ordering Provider Date Vitamin B12 Injection 1000 Coco Shaver, DO 12/04/2018 mcg/Ml Injection Immunizations CPT Code Status Date Vaccine Lot # [id number] Given 10/07/2018 Tdap injection [id number] Given 12/13/2017 Influenza Virus Vaccine, Quadrivalent, 36 Mos+, .5ML Vital Signs Date Vital Result Comment 02/26/2019 10:31am BP Systolic Sitting Left Arm 132 mmHg BP Diastolic Sitting Left Arm 86 mmHg Body Temperature 97.6 F Heart Rate 77 /min Respiratory Rate 18 /min Height 62 inches 5'2" Weight 234.00 lb BMI (Body Mass Index) 42.8 kg/m2 BSA (Body Surface Area) 2.04 m2 [place] body weight in kilograms 50 kg O2 % BldC Oximetry 97 % ra 01/18/2019 10:34am BP Systolic Sitting Left Arm 125 mmHg BP Diastolic Sitting Left Arm 84 mmHg Body Temperature 97.9 F Heart Rate 67 /min Respiratory Rate 20 /min Height 62 inches 5'2" Weight 240.00 lb Pain Level 0 BMI (Body Mass Index) 43.9 kg/m2 BSA (Body Surface Area) 2.07 m2 [place] body weight in kilograms 50 kg O2 % BldC Oximetry 99 % Ra Results Test Acquired Date Facility Test Result H/L Range Note CBC 12/04/2018 [facility] White Blood 7.0 K/uL Normal 3.1-10.7 1 W/Automated [address] [place] [address] [phone] Red Blood Count 4.24 M/uL Normal 3.90-5.40 [...] 40.4-72.8 Lymph % 42.7 % High 20.0-42.0 [place] % 4.6 % Normal 4.3-13.2 Eo% 3.6 % Normal 0.0-6.6 Bas% 0.7 % Normal 0.0-1.1 Immature Grans 0.6 % Normal 0.0-5.0 NRBC % 0.0 /100WBC < 10/ 100 WBC Neut# 3.36 K/uL Normal 1.8-7.0 Lymph # 3.00 K/uL Normal 1.0-4.0 [place] # 0.32 K/uL Normal 0.3-0.9 Eos # 0.25 K/uL Normal 0.0-0.5 Baso # 0.05 K/uL Normal 0.0-0.1 Immature Grans Absolute 0.04 K/uL NRBC # 0.00 K/uL Comprehensive 12/04/2018 [facility] Glucose 78 mg/dL Normal 74-106 Metabolic Panel [address] [place] [address] [phone] BUN 17 mg/dL Normal 7-18 Creatinine 0.8 [...] Serum Iron 120 g/dL Normal 50-170 [address] [place], [place] [id number] [phone] Total Iron Binding Capacity 309 g/dL Normal 250-450 Transferrin %Saturation 39 % Normal 12-57 Laboratory test 12/04/2018 [facility] Ferritin 83 ng/mL Normal 8-252 finding [address] [place], [place] [id number] [phone] Vitamin B12 And 12/04/2018 [facility] Vitamin B12 442 pg/mL Normal 193-986 Folate [address] [place], [place] [id number] [phone] Folic Acid 13.7 ng/mL Normal 3.1-17.5 Laboratory test 12/04/2018 [facility] Vitamin 43.2 30.0-100.0 3 finding 134 [facility] D,25-Hydroxy ng/[place] [address] [phone] 1 E61.1 E53.9 E55.9 2 Note: Persistent [...] D deficiency has been defined by the [place] of Medicine and an Endocrine Society practice guideline as a level of serum 25-OH vitamin D less than 20 ng/mL (1,2). The Endocrine Society went on to further define vitamin D insufficiency as a level between 21 and 29 ng/mL (2). 1. IOM ([place] of Medicine). 2010. Dietary reference intakes for calcium and D. [place]: The National Academies Press. 2. Jose Roberto MF, Kirstin [place], Janeth ENRIQUEZ, et al. Evaluation, treatment, and prevention of vitamin D deficiency: an Endocrine Society clinical practice guideline. JCEM. 2010; 96(3):0061-30. Performed at: RN - [facility] [address] [id number] Dialysis Nurse: Jasmyn Hutchinson MD, Phone: [phone] Procedures Date Code Description Status 02/02/2019 99278 Eye Exam New Patient Comprehensive Completed 12/04/2018 40779 Theraputic Or Diagnostic Injection Completed 03/17/2018 [id number] Mammogram Completed Medical Devices Description No Information Available Encounters Type Date Location Provider Dx Diagnosis Office Visit 02/26/2019 Primary Care Thu [facility] (primary) 10:30a Office MS Anika, hypertension [employer], CNM F41.1 Generalized anxiety disorder K21.9 Gastro-esophageal [...] I10 Essential (primary) hypertension Anika Andino, MS, [employer] , CNM 02/26/2019 F41.1 Generalized anxiety disorder Anika Andino, MS, [employer], CNM 02/26/2019 K21.9 Gastro-esophageal reflux disease Anika Andino, MS, [employer], without esophagitis CNM 02/26/2019 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 Anika Andino, MS, [employer] , CNM 02/26/2019 E55.9 Vitamin D deficiency Anika Andino, MS, [employer], CNM 02/26/2019 E78.2 Mixed hyperlipidemia Anika Andino, MS, [employer], CNM 02/26/2019 M79.7 Fibromyalgia Anika Andino, MS, [employer], CNM 02/26/2019 M54.5 Low back pain Anika Andino, MS, [employer], CNM 02/02/2019 H50.111 Monocular exotropia, right eye [...] 12/04/2018 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 BoCoco prasad DO 12/04/2018 E61.1 Iron deficiency Coco Shaver DO 12/04/2018 E53.9 Vitamin B deficiency, unspecified Coco Shaver DO 10/07/2018 I10 Essential (primary) hypertension Maite Manuel MD 10/07/2018 F41.1 Generalized anxiety disorder Maite Manuel MD 10/07/2018 Z23 Encounter for immunization Maite Manuel MD 10/07/2018 Z12.11 Encounter for screening for Maite Manuel MD malignant neoplasm of colon Plan of Treatment Future Appointment(s):04/09/2019 10:30 am - nAika Andino MS, [employer], CNM at Primary Care Blduuv3103/15/2019 1:00 pm - Anjel Collier MD at Operating Room03/23/2019 2:00 pm - Anjel Collier MD at 03/26/2019 8:30 am - Coco Shaver DO at Oncology Ygoqay5603/22/2019 10:00 am - Oncology Nurse at Oncology Anwzbx5702/26/2019 - Anika Andino MS, TERA-C, CNMI10 Essential (primary) hypertensionComments:--B/P 132/86--Controlled, continue Hydrochlorothiazide 12.5 mg take 1 tablet by mouth once daily, Amlodipine Besylate 5 mg 1 by mouth every day--Limit salt intake. The [place] heart Association recommends 1, 500 mg a day as an upper limit for all adults. --Drinking too much alcohol can increase blood pressure. Guidelines recommend no more than 1 alcoholic beverage a day for women.--Increase physical activity to 30 minutes on most days, as tolerated.--Lose weight.--Reduce stress. Some things thatmay help are to avoid triggers, practice gratitude, make time to relax and do activities you enjoy, kymnvtikahB13.1 Generalized anxiety disorderComments:--klonopin 1 tab twice a day as needed --buspirone 15mg 1 tab increased to three times a day - Clonidine at night for anxiety and insomnia -Started venlafaxine 37.5 mg ER daily In the past, Patient has taken a higher dose of venlafaxine; however, had side effects (muscle, jaw clenching ).--Discussed in detail that I am not a psychiatric nurse practitioner and Patient does need a higher level of care with a psychiatric practitioner. Patient verbalizes understanding and states she will call lela OV with psych provider--Given list of counselors and advised needs a psych provider to provide ahigher level of careK21.9 Gastro- esophageal reflux disease without esophagitisComments:--Controlled. Continue Omeprazole 40 mg 1 by mouth every day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Comments:--Following with Dr Shaver--Controlled, Continue Tamoxifen Citrate 20 mg 1 arqxtW38.9 Vitamin D deficiencyComments:--Vit D 43.2 now controlled--Continue hezc-ekj-zfdedan rmxmqbticuhF21.2 Mixed hyperlipidemiaComments:--Will get labs and discuss on RTO in 6 wyvfkZ82.7 FibromyalgiaComments:--Continue healthy diet and 30 min walking every dayM54.5 Low back painNew Xrays:Spine, Lumbosacral Complete, Scheduled: 03/12/19Comments: --heat 20 in on 20 min off--Continue naproxen --Offered PT, declined at this time--X-rayAllFollow up:--RTO in 6 weeks --give mental health options back x ray Functional Status Functional Condition Comment Date Status Independent with all ADL's Active Mental Status Description No Information Available Referrals Refer to Reason for Referral Status Appt Date Chai Castillo MD [facility] [address] [place] [id number] [phone]
[2019-03-11 09:05] VITALS: BP 114/81
--- NOTE | 2019-03-11 09:36 | UC ---
Respiratory Complaint HPI - HPI Summary HPI Summary: Pt presents with c/o sinus congestion, couhg, sinus pain, fatigue, X 5 days. Pt has hx of breast cancer - History of Current Complaint Chief Complaint: UCRespiratory Stated Complaint: SORETHROAT/EARACHE Time Seen by Provider: 03/11/19 09:21 Hx Obtained From: Patient Hx Last Menstrual Period: 11/24/12 ?: No Onset/Duration: Gradual Onset, Lasting Days, Still Present, Worse Since - onset Timing: Constant Severity Initially: Mild Severity Currently: Moderate Pain Intensity: 4 Character: Cough: Nonproductive Aggravating Factors: Exertion, Recumbent Position Alleviating Factors: Nothing Associated Signs And Symptoms: Positive: Chills, URI, Nasal Congestion - Risk Factors Pulmonary Embolism Risk Factors: Negative Cardiac Risk Factors: Negative Pseudomonas Risk Factors: Negative Tuberculosis Risk Factors: Negative - Allergies/Home Medications Allergies/Adverse Reactions: Allergies Allergy/AdvReac Type Severity Reaction Status Date / Time benazepril Allergy Hives Verified 03/11/19 08:59 losartan Allergy Hives Verified 03/11/19 08:59 Home Medications: Home Medications Dextromethorphan Polistirex [Robitussin ER] 60 mg PO Q12H PRN 03/11/19 [History Confirmed 03/11/19] Omeprazole (Nf) [Prilosec (NF)] 40 mg PO DAILY 03/11/19 [History Confirmed 03/11] cloNIDine TAB* [Catapres 0.1 MG TAB*] 0.1 mg PO BEDTIME 03/11/19 [History Confirmed 03/11/19] PMH/Surg Hx/FS Hx/Imm Hx Previously Healthy: Yes Endocrine History: Dyslipidemia Cardiovascular History: Hypertension Cancer History: Breast Cancer - Surgical History Surgical History: Yes Surgery Procedure, Year, and Place: Hysterectomy, 2016, [place]; Left Breast Benign Masses, 2014, [place]; Essure, 2006, [place]; , 2004, [place] - Family History Known Family History: Positive: Hypertension, Diabetes - Social History Occupation: Employed Full-time Alcohol Use: Weekly Alcohol Amount: 2 Substance Use Type: None Smoking Status (MU): Former Smoker Type: Cigarettes Amount Used/How Often: up 1 pack 15 year Length of Time of Smoking/Using Tobacco: <1 PPD x 15 Years Have You Smoked in the Last Year: No When Did the Patient Quit Smoking/Using Tobacco: 2004 - Immunization History Vaccination Up to Date: Yes Review of Systems All Other Systems Reviewed And Are Negative: Yes Constitutional: Positive: Chills, Fatigue Skin: Positive: Negative Eyes: Positive: Negative ENT: Positive: Sinus Congestion, Sinus Pain/Tenderness Respiratory: Positive: Cough Cardiovascular: Positive: Negative Gastrointestinal: Positive: Negative Genitourinary: Positive: Negative Motor: Positive: Negative Neurovascular: Positive: Negative Musculoskeletal: Positive: Negative Neurological: Positive: Headache Is Patient Immunocompromised?: No Physical Exam Triage Information Reviewed: Yes Appearance: Ill-Appearing Vital Signs: Initial Vital Signs Temp 98.5 F 03/11/19 08:56 Pulse 67 03/11/19 08:56 Resp 16 03/11/19 08:56 BP 114/81 03/11/19 08:56 Pulse Ox 100 03/11/19 08:56 Vital Signs Reviewed: Yes Eye Exam: Normal ENT: Positive: Nasal congestion, Sinus tenderness Dental Exam: Normal Neck exam: Normal Respiratory Exam: Normal Respiratory: Positive: Normal breath sounds Cardiovascular Exam: Normal Musculoskeletal Exam: Normal Neurological Exam: Normal Psychological Exam: Normal Skin Exam: Normal Respiratory Course/Dx - Differential Dx/Diagnosis Differential Diagnosis/HQI/PQRI: Bronchitis, Sinusitis Provider Diagnosis: Sinusitis Discharge ED - Sign-Out/Discharge Documenting (check all that apply): Patient Departure All imaging exams completed and their final reports reviewed: No Studies - Discharge Plan Condition: Stable Disposition: HOME Prescriptions: Cetirizine* [ZyrTEC 10 MG TAB*] 10 mg PO DAILY #7 tab Codeine Phosphate/Guaifenesin [Codeine-Guaifen 10-100 mg/5 ml] 5 ml PO BEDTIME PRN #20 ml MDD 5 ml PRN Reason: Cough predniSONE TAB* [Deltasone 10 MG TAB*] 30 mg PO DAILY #12 tab Patient Education Materials: Viral Syndrome (ED), Acute Cough (ED) Referrals: Maite Manuel MD [Primary Care Provider] - If Needed Additional Instructions: Please follow up with your PCP as needed. Please do not take your Klonopin at the same time you take the cough syrup prescribed for you. - Billing Disposition and Condition Condition: STABLE Disposition: Home - Attestation Statements Provider Attestation: Per institutional requirements, I have reviewed the chart, however, I was not consulted specifically or made aware of this patient by the midlevel provider. I did not personally evaluate, interact with , or disposition this patient.
== END 2019-03-11 09:54 | disposition home or self-care (01) ==
LOC: UCCORT 08:44
DX: J32.9 Chronic sinusitis, unspecified (principal); I10 Essential (primary) hypertension; Z88.8 Allergy status to other drugs, medicaments and biological substances; Z87.891 Personal history of nicotine dependence; R53.83 Other fatigue; Z85.3 Personal history of malignant neoplasm of breast
CPT/HCPCS: 99212; G0463

== ENCOUNTER 2019-05-26 15:40 | Emergency (ER) | payer OTHER ==
[2019-05-26 18:10] VITALS: BP 120/76
--- NOTE | 2019-05-26 18:37 | UC ---
Throat Pain/Nasal Demian HPI - HPI Summary HPI Summary: 54-year-old woman comes in with chief complaint of upper respiratory tract infection symptoms for 5 days. She's been having rhinorrhea that's turning yellow. She is having increasing sinus pressure. Also feels fatigued. Does have some chest congestion. No fevers of breath. She has had used albuterol in the past when she has upper respiratory tract infections but she's run out of albuterol. - History of Current Complaint Chief Complaint: UCRespiratory Stated Complaint: SINUS PRESSURE,EAR PAIN Time Seen by Provider: 05/26/19 18:22 Hx Last Menstrual Period: 11/24/12 Pain Intensity: 6 - Allergies/Home Medications Allergies/Adverse Reactions: Allergies Allergy/AdvReac Type Severity Reaction Status Date / Time benazepril Allergy Hives Verified 05/26/19 18:10 losartan Allergy Hives Verified 05/26/19 18:10 Home Medications: Home Medications Fluticasone NASAL * [Flonase *] 2 spray NASAL DAILY 08/02/12 [History Confirmed 05/26/19] Albuterol HFA INHALER* [Ventolin HFA Inhaler*] 2 puff INH Q4H PRN 11/30/17 [ History Confirmed 05/26/19] Ibuprofen TAB* [Advil TAB*] 400 mg PO Q6H PRN 11/30/17 [History Confirmed ] Tamoxifen Citrate 20 mg PO DAILY 11/30/17 [History Confirmed 05/26/19] Amlodipine Besylate [Norvasc] 5 mg PO DAILY 08/24/18 [History Confirmed 05/26/19 ] busPIRone TAB* [Buspar TAB *] 15 mg PO TID 08/24/18 [History Confirmed 05/26/19] hydroCHLOROthiazide [Hydrochlorothiazide] 12.5 mg PO DAILY 08/24/18 [History Confirmed 05/26/19] Omeprazole (Nf) [Prilosec (NF)] 40 mg PO DAILY 03/11/19 [History Confirmed 05/25] cloNIDine TAB* [Catapres 0.1 MG TAB*] 0.1 mg PO BEDTIME 03/11/19 [History Confirmed 05/26/19] Albuterol HFA INHALER* [Ventolin HFA Inhaler*] 2 puff INH Q4H PRN #1 mdi [Rx] Amoxicillin PO (*) [Amoxicillin 875 MG (*)] 875 mg PO BID #20 tab 05/26/19 [Rx] predniSONE 10 mg TAB [Deltasone 10 MG TAB*] 30 mg PO 05/26/19 [History] PMH/Surg Hx/FS Hx/Imm Hx Previously Healthy: Yes Cardiovascular History: Hypertension Respiratory History: Asthma GI/ History: Gastroesophageal Reflux - Surgical History Surgical History: Yes Surgery Procedure, Year, and Place: Hysterectomy, 2016, [place]; Left Breast Benign Masses, 2014, [place]; [place], 2006, [place]; , 2004, [place] - Family History Known Family History: Positive: Hypertension, Diabetes - Social History Alcohol Use: Occasionally Alcohol Amount: 2 Substance Use Type: None Smoking Status (MU): Former Smoker Type: Cigarettes Amount Used/How Often: up 1 pack 15 year Length of Time of Smoking/Using Tobacco: <1 PPD x 15 Years Have You Smoked in the Last Year: No When Did the Patient Quit Smoking/Using Tobacco: 2004 - Immunization History Vaccination Up to Date: Yes Review of Systems All Other Systems Reviewed And Are Negative: Yes Constitutional: Positive: Other - SEE HPI Skin: Positive: Negative Eyes: Positive: Negative ENT: Positive: Sore Throat, Nasal Discharge, Sinus Congestion, Sinus Pain/ Tenderness Respiratory: Positive: Cough, Other - SEE HPI Cardiovascular: Positive: Negative Gastrointestinal: Positive: Negative Motor: Positive: Negative Neurovascular: Positive: Negative Musculoskeletal: Positive: Negative Neurological/Mental Status: Positive: Negative Psychological: Positive: Negative Is Patient Immunocompromised?: No Physical Exam Triage Information Reviewed: Yes Appearance: No Pain Distress, Well-Nourished, Ill-Appearing - MILD Vital Signs: Initial Vital Signs Temp 98.6 F 05/26/19 18:01 Pulse 76 05/26/19 18:01 Resp 18 05/26/19 18:01 BP 120/76 05/26/19 18:01 Pulse Ox 100 05/26/19 18:01 Vital Signs Reviewed: Yes Eye Exam: Normal Eyes: Positive: Conjunctiva Clear ENT: Positive: Pharyngeal erythema, Nasal congestion, Nasal drainage, TMs normal Neck: Positive: Supple Respiratory: Positive: Lungs clear, Normal breath sounds, No respiratory distress Cardiovascular: Positive: RRR Musculoskeletal: Positive: Strength Intact, ROM Intact Neurological: Positive: Alert, Muscle Tone Normal Psychological: Positive: Age Appropriate Behavior Skin Exam: Normal Throat Pain/Nasal Course/Dx - Course Course Of Treatment: DISCUSSED VIRAL VERSES BACTERIAL INFECTIONS AND THE ROLE OF ANTIBIOTICS. THE PATIENT PREFERS TO BE ON ANTIBIOTICS AT THIS TIME. - Differential Dx/Diagnosis Provider Diagnosis: Sinusitis Discharge ED - Sign-Out/Discharge Documenting (check all that apply): Patient Departure All imaging exams completed and their final reports reviewed: No Studies - Discharge Plan Condition: Stable Disposition: HOME Prescriptions: Albuterol HFA INHALER* [Ventolin HFA Inhaler*] 2 puff INH Q4H PRN #1 mdi PRN Reason: Wheezing Amoxicillin PO (*) [Amoxicillin 875 MG (*)] 875 mg PO BID #20 tab Patient Education Materials: Sinusitis (ED) Forms: *Work Release Referrals: Maite Manuel MD [Primary Care Provider] - Additional Instructions: FOLLOW UP WITH YOUR DOCTOR IF NOT COMPLETELY IMPROVED. GET REEVALUATED SOONER IF NOT IMPROVED OR WORSE OR ANY QUESTIONS OR CONCERNS. - Billing Disposition and Condition Condition: STABLE Disposition: Home
== END 2019-05-26 18:48 | disposition home or self-care (01) ==
LOC: UCCORT 15:40
DX: J32.9 Chronic sinusitis, unspecified (principal); J02.9 Acute pharyngitis, unspecified; I10 Essential (primary) hypertension; J45.909 Unspecified asthma, uncomplicated; Z79.51 Long term (current) use of inhaled steroids; K21.9 Gastro-esophageal reflux disease without esophagitis; Z87.891 Personal history of nicotine dependence; Z88.8 Allergy status to other drugs, medicaments and biological substances; Z79.899 Other long term (current) drug therapy
CPT/HCPCS: 99212; G0463